=== PATIENT | male | born 1965 | race Caucasian/White ===

== ENCOUNTER 2020-06-27 16:18 | Emergency (ER) | payer MEDICAID, SELFPAY ==
[2020-06-27 16:30] VITALS: BP 165/90; PULSE 97; RESP 16; TEMP 37.4; O2SAT 99
--- NOTE | 2020-06-27 16:58 | ED.URI ---
HPI - URI/Sore Throat General Chief Complaint: Upper Respiratory Infection Stated Complaint: Headache,Fever,Sore throat Time Seen by Provider: 06/27/20 16:58 Source: patient Mode of arrival: ambulatory Limitations: no limitations History of Present Illness HPI Narrative: Otilio Vazquez is a 55 yo male with headache and feverish for the past 6 days; exposed to a nephew 3 days prior to that monitor test positive the other tested negative. He refused to allow the nurse to do a rapid Covid because he refuses to have a nose swab Related Data Allergies Allergy/AdvReac Type Severity Reaction Status Date / Time No Known Allergies Allergy Unverified 08/04/17 11:46 Review of Systems Review of Systems: Narrative: CONSTITUTIONAL: Feels feverish chills, sweats. Has headache EYES: Denies visual changes, redness, discharge. ENT: Denies rhinorrhea, some congestion, sore throat, otalgia. CARDIOVASCULAR: Denies chest pain, palpitations, edema. RESPIRATORY: Denies dyspnea, wheezing, cough GASTROINTESTINAL: Denies abdominal pain, nausea, vomiting, diarrhea. GENITOURINARY: Denies dysuria, hematuria, abnormal discharge SKIN: Denies rash or itching. NEUROLOGIC: Denies numbness, or focal weakness. PSYCHIATRIC: Denies anxiety or depression. ON LICENSE OF [facility] Past Medical History Medical History (Updated 06/27/20 @ 17:49 by Mey Valdes CNP) Chronic back pain Surgical History Surgical History (Updated 06/27/20 @ 17:04 by Mey Valdes CNP) H/O bilateral inguinal hernia repair H/O spinal fusion Family History Family History Sibling Carcinoma of colon Family history of heart disease in male family member before age 55 Mother Family history of Hodgkin's lymphoma, Onset Age: 52 Patient's mother is , Onset Age: 52 Father Family history of heart disease in male family member before age 55, Onset Age: 82 Other Diabetes mellitus Family history of allergic disorder Hypertension Social History Social History Smoking status: Heavy tobacco smoker Alcohol intake: current Comments At time of signature, I agree with nursing past medical, surgical, social and family history. There is no relevant family history pertinent to the presenting complaint. Patient's blood pressure is elevated today visit should follow-up with PCP this week although pt claims BP always elevated due to his chronic back pain Exam Narrative: Exam Narrative: GENERAL: This is a well-nourished, well-developed patient, in mild distress. HEAD: normocephalic, atraumatic. EYES: PERRL. Sclera clear/white. Vision is grossly intact. EARS: External ears normal, auditory canals clear and without drainage, TMs normal without perforation. Hearing grossly intact. NOSE: External nose normal without nasal discharge, nares without redness, no rhinorrhea. THROAT: Mucous membranes moist, posterior pharynx mild erythema mucous membranes are dry, poor dentition NECK: Neck supple, non-tender CARDIOVASCULAR: Regular rate and rhythm without murmurs, gallops, or rubs. RESPIRATORY: Clear to auscultation. Breath sounds equal bilaterally. No wheezes, rales, or rhonchi. GASTROINTESTINAL: Abdomen soft, non-tender, his pain is SKIN: warm, intact with no suspicious lesions or rash, good texture and turgor. NEURO: awake, alert, and oriented to person, place and time. There were no obvious focal neurologic abnormalities. Steady gait EXTREMITIES: Normal range of motion. BACK: Nontender without deformity Course Course Emergency Course: 55-year-old male who comes to [facility] with complaints of headache feeling feverish congestion that started last Saturday 3 days post exposure to to his nephews one of them tested positive for Covid the other who is ill with just a virus patient was difficult to get initial code Covid consent on he had both a rapid Covid and a PCR to
[2020-06-28 20:46] LABS: SARS-CoV-2 RNA PCR Negative
== END 2020-06-27 17:38 | disposition home or self-care (01) ==
PROVIDERS: Emergency Provider Nurse Practitioner
DX: J06.9 Acute upper respiratory infection, unspecified (principal); Z20.822 Contact with and (suspected) exposure to COVID-19; F17.200 Nicotine dependence, unspecified, uncomplicated
CPT/HCPCS: 87426; 99213; C9803; G0463; U0003; U0005

== ENCOUNTER 2020-07-20 10:50 | Outpatient (CLI) | payer OTHER, SELFPAY ==
--- NOTE | ~2020-07-20 | XR_ITS ---
EXAMINATION: XR chest 2V DATE: 07/20/2020 11:05 INDICATION: Shortness of breath. TECHNIQUE: Frontal and lateral views of the chest were obtained. COMPARISON: Chest 2 views 08/04/2013, chest CT 09/01/2018 FINDINGS: There are chronic reticular opacities in the lungs, consistent with emphysema. No pleural e ffusion or pneumothorax. The heart size is normal. Surgical clips in the right upper quadrant are lik elena from cholecystectomy. IMPRESSION: 1. Emphysema. Reviewed, dictated and finalized at location A. IMPRESSION: 1. Emphysema.
[2020-07-20 11:34] LABS: Basophils Absolute Auto 0.1 K/mm3 (0.0-0.1); Basophils Percent Auto 1.2 % (0.2-1.2); Eosinophils Absolute Auto 0.3 K/mm3 (0-0.3); Eosinophils Percent Auto 2.6 % (0-4.4); Hematocrit 51.3 % (42.0-52.0); Hemoglobin 18.4 g/dL (14.0-18.0); Immature Granulocyte Absolute 0.03 K/mm3 (0.00-0.031); Immature Granulocyte Percent A 0.3 % (0-0.5); Lymphocytes Absolute Auto 2.48 K/mm3 (0.9-3.2); Lymphocytes Percent Auto 20.8 % (18.3-44.2); Mean Corpuscular HGB Conc 35.9 g/dl (32-36); Mean Corpuscular Hemoglobin 32.4 pg (26-34); Mean Corpuscular Volume 90.3 fl (80-100); Monocytes Absolute Auto 0.8 K/mm3 (0.1-0.6); Monocytes Percent Auto 6.3 % (2.6-8.5); Neutrophils Absolute Auto 8.2 K/mm3 (1.3-6.7); Neutrophils Percent Auto 68.8 % (45.5-73.1); Platelet Count Result 267 k/mm3 (150-375); Red Blood Count 5.68 M/mm3 (4.6-6.20); Red Cell Distribution Width 12.7 % (11.5-14.5); White Blood Count 11.9 K/mm3 (4.5-10.0)
[2020-07-20 11:35] LABS: Add Urine Microscopic? NO; Appearance Urine Clear (Clear); Bilirubin Urine Negative (Negative); Blood Urine Negative (Negative); Color Urine Straw (Yellow); Glucose Urine UA Negative (Negative); Ketones Urine Negative (Negative); Leukocyte Esterase Ur Negative LEU/UL (NEGATIVE); Nitrate Urine Negative (Negative); Protein Urine Negative (Negative); Urobilinogen Urine Negative mg/dL (<2.0)
[2020-07-20 11:43] LABS: Specific Grav Ur 1.004 (1.001-1.035)
[2020-07-20 12:29] LABS: Vitamin D 25 Hydroxy 32.2 ng/mL
[2020-07-20 13:26] LABS: Hemoglobin A1C 5.3 % (<5.7)
[2020-07-20 13:53] LABS: Alanine Aminotransferase 56 U/L (4-50); Albumin Level 4.4 g/dL (3.5-5.1); Alkaline Phosphatase 90 U/L (38-126); Anion Gap 5 mmol/L (8-16); Aspartate Amino Transferase 41 U/L (17-59); Bilirubin,Total 0.5 mg/dL (0.2-1.3); Blood Urea Nitrogen 9 mg/dL (9-20); Calcium 9.4 mg/dL (8.4-10.2); Carbon Dioxide 32 mmol/L (22-30); Chloride 104 mmol/L (98-107); Cholesterol 175 mg/dL (0-200); Estimated Glomerular Filt Rate > 60; Glucose 96 mg/dL (75-110); HDL Direct 33 mg/dL; Sodium 141 mmol/L (137-145); Triglycerides 225 mg/dL (<150)
[2020-07-20 14:21] LABS: LDL Cholesterol Direct 102 mg/dL
[2020-07-20 14:51] LABS: Prostate Specific Antigen 0.7 ng/mL (< OR = 4.0)
== END 2020-07-20 10:51 | disposition home or self-care (01) ==
LOC: ANHIMG 10:52
PROVIDERS: PCP Nurse Practitioner Family; Visit Provider Nurse Practitioner Family
DX: R06.02 Shortness of breath (principal); Z72.0 Tobacco use; Z00.00 Encounter for general adult medical examination without abnormal findings; E55.9 Vitamin D deficiency, unspecified; Z12.5 Encounter for screening for malignant neoplasm of prostate; J43.9 Emphysema, unspecified
CPT/HCPCS: 36415; 71046; 80053; 80061; 81003; 82306; 82607; 82746; 83036; 84153; 84443; 85025; G0103

== ENCOUNTER 2020-08-29 00:59 | Day surgery (SDC) | payer OTHER, SELFPAY ==
[2020-08-23 12:20] VITALS: BMI 30.7
[2020-08-29 07:44] VITALS: BP 136/80; PULSE 64; RESP 18; TEMP 36.5; O2SAT 95
[2020-08-29] MEDS: LACTATED RINGERS 1,000 ML 150 ML IV CONT (07:53)
--- NOTE | 2020-08-29 08:19 | WPDANESEPPF ---
Anes - Initial Pre Proc Eval Procedure: Operation Date: 08/29/20 08:30 Proposed Procedures p Esophagogastroduodenoscopy & Screening Colonoscopy - Rishi Ceron MD Date/Time: 08/29/20 08:19 Surgeon: Rishi Ceron MD Pre Op Diagnosis: family hx of colon ca, barkley's esophagus Patient Data Age: 55 Gender: M Height: 1.8 m Weight: 98.3 kg Last Vital Signs Temp 97.7 F 08/29/20 07:44 Pulse 64 08/29/20 07:44 Resp 18 08/29/20 07:44 BP 136/80 08/29/20 07:44 Pulse Ox 95 08/29/20 07:44 Allergies Allergy/AdvReac Type Severity Reaction Status Date / Time No Known Allergies Allergy Unverified 08/29/20 07:42 Home Medications Medication Instructions Recorded Confirmed Type metoprolol succinate 25 mg 25 mg PO DAILY #30 tablet 07/20/20 08/29/20 Rx tablet,extended release 24 hr omeprazole 20 mg capsule,delayed 20 mg PO DAILY #30 cap 07/20/20 08/29/20 Rx release naproxen sodium [Aleve] 220 mg PO BID PRN 08/23/20 08/29/20 History Patient hx anesthesia problems: none Family hx anesthesia problems: none PMFSH Past Medical History Medical History (Updated 07/20/20 @ 09:52 by Aniyah Reed NP) Anxiety Barretts esophagus Chronic back pain Chronic knee pain Depression Encounter to establish care Family history of colon cancer Fatty liver Hypertension Shortness of breath Tobacco abuse Surgical History Surgical History (Updated 07/20/20 @ 08:12 by Jonas Unger CMA) H/O bilateral inguinal hernia repair H/O spinal fusion Hx of cholecystectomy Family History Family History (Updated 07/20/20 @ 08:13 by Jonas Unger CMA) Sibling Carcinoma of colon Family history of heart disease in male family member before age 55 Diabetes mellitus Hypertension Depression Mother Family history of Hodgkin's lymphoma, Onset Age: 52 Patient's mother is , Onset Age: 52 Hypertension Diabetes mellitus Father Family history of heart disease in male family member before age 55, Onset Age: 82 Heart disease Other Family history of allergic disorder Social History Social History (Updated 07/20/20 @ 08:13 by Jonas Unger CMA) Smoking packs per day: 1 Smoking cigarettes per day: 20.0 Smoking status: Current every day smoker Tobacco type: cigarettes Alcohol intake: former Substance use: never Living arrangements: with family Spiritual care concerns: No Anes - Eval Final PreProcedure Day of Procedure 08/29/20 08:19 Patient weight: obese Heart: regular rate and rhythm Lungs: clear to auscultation Airway: Mallampati scale class II Neurological: alert and oriented Last oral intake: >/= 8 hours ASA classification: III Emergent: no Anesthetic plan: proceed Anesthesia type and monitoring: general GIVS and standard monitoring Informed Consent: The patient's anesthetic plan and its attendant risks and benefits were discussed with the patient/family/POA. Questions were solicited and answers provided to the satisfaction of the patient/family/POA.
--- NOTE | 2020-08-29 08:34 | PM.HPGS ---
History of Present Illness History of Present Illness Consent: Risks, benefits, and alternatives have been discussed and questions answered. Patient agrees to proceed with procedure. Chief complaint: family hx of colon ca, barkley's esophagus Narrative: Otilio Vazquez is a 55 year old male who had been found to have Barkley's esophagus a few years ago. He also has a history of colon polyps Review of Systems Review of Systems: All systems reviewed & are unremarkable except as noted in HPI and below PMFSH Past Medical History Medical History Anxiety Barretts esophagus Chronic back pain Chronic knee pain Depression Encounter to establish care Family history of colon cancer Fatty liver Hypertension Shortness of breath Tobacco abuse Surgical History Surgical History H/O bilateral inguinal hernia repair H/O spinal fusion Hx of cholecystectomy Family History Family History Sibling Carcinoma of colon Family history of heart disease in male family member before age 55 Diabetes mellitus Hypertension Depression Mother Family history of Hodgkin's lymphoma, Onset Age: 52 Patient's mother is , Onset Age: 52 Hypertension Diabetes mellitus Father Family history of heart disease in male family member before age 55, Onset Age: 82 Heart disease Other Family history of allergic disorder Social History Social History Smoking packs per day: 1 Smoking cigarettes per day: 20.0 Smoking status: Current every day smoker Tobacco type: cigarettes Alcohol intake: former Substance use: never Living arrangements: with family Spiritual care concerns: No Meds Home Medications and Allergies Home Medications Medication Instructions Recorded Confirmed Type metoprolol succinate 25 mg 25 mg PO DAILY #30 tablet 07/20/20 08/29/20 Rx tablet,extended release 24 hr omeprazole 20 mg capsule,delayed 20 mg PO DAILY #30 cap 07/20/20 08/29/20 Rx release naproxen sodium [Aleve] 220 mg PO BID PRN 08/23/20 08/29/20 History Allergies Allergy/AdvReac Type Severity Reaction Status Date / Time No Known Allergies Allergy Unverified 08/29/20 07:42 Vital Signs Vital Signs - 24 hr 08/29/20 07:44 Temperature 36.5 C Pulse Rate 64 Respiratory Rate 18 Blood Pressure 136/80 Pulse Oximetry 95 Exam Const: General: alert Orientation/consciousness: patient oriented x3 Resp: Auscultation: clear to auscultation bilaterally Cardio: Rhythm: regular rhythm GI: GI Palp: Yes Soft to palpation and No Tenderness to palpation present (GI) Neuro: General: patient oriented x3 Assessment and Plan Assessment and plan (1) Barretts esophagus: Code(s): K22.70 - Barkley's esophagus without dysplasia Status: Acute Assessment and Plan: EGD with possible biopsy or dilatation or cautery. (2) Colon cancer screening: Code(s): Z12.11 - Encounter for screening for malignant neoplasm of colon Status: Acute Assessment and Plan: Colonoscopy with possible biopsy or polypectomy or cautery or injection of substances.
[2020-08-29] MEDS: BENZOCAINE (*SP) 60 ML SPRAY CAN (HURRICAINE) 1 SPRAY MUCOUS MEM (08:48)
[2020-08-29 09:18] VITALS: BP 102/54; PULSE 54; RESP 15; O2SAT 94
[2020-08-29 09:28] VITALS: BP 118/84; PULSE 62; RESP 23; O2SAT 92
[2020-08-29 09:38] VITALS: BP 110/77; PULSE 59; RESP 20; O2SAT 95
== END 2020-08-29 09:45 | disposition home or self-care (01) ==
PROVIDERS: PCP Nurse Practitioner Family; Visit Provider Internal Medicine Gastroenterology
PROC: 0DJ08ZZ Inspection of Upper Intestinal Tract, Via Natural or Artificial Opening Endoscopic (ICD-10-PCS; CPT 43235; principal; 2020-08-29 08:30)
DX: Z12.11 Encounter for screening for malignant neoplasm of colon (principal); K63.5 Polyp of colon; K64.8 Other hemorrhoids; K64.4 Residual hemorrhoidal skin tags; K22.70 Barrett's esophagus without dysplasia; K21.00 Gastro-esophageal reflux disease with esophagitis, without bleeding; F41.8 Other specified anxiety disorders; K76.0 Fatty (change of) liver, not elsewhere classified; I10 Essential (primary) hypertension; F17.210 Nicotine dependence, cigarettes, uncomplicated; E66.9 Obesity, unspecified; Z68.30 Body mass index [BMI] 30.0-30.9, adult
CPT/HCPCS: 45385; 45380; 43239; 88305; J2704; J7120

== ENCOUNTER 2020-11-11 13:11 | Emergency (ER) | payer OTHER, SELFPAY ==
--- NOTE | 2020-11-11 13:14 | ED.ABDPAIN ---
HPI - Abdominal Pain General Chief Complaint: Abdominal Pain Stated Complaint: Abdominal Pain Time Seen by Provider: 11/11/20 13:30 Source: patient and RN notes reviewed Mode of arrival: ambulatory Limitations: no limitations History of Present Illness HPI narrative: 55-year-old male with history of Lew's esophagus, chronic pain, emphysema, fatty liver, hypertension, tobacco use presents with concern for abdominal pain. Reports history of chronic right upper quadrant abdominal pain for which he has had several work-up diagnostic tests. Reports yesterday when he was tying his shoes he bent over felt a sudden left upper quadrant abdominal pain that has worsened since then he has become distended. Reports left upper quadrant tenderness, worsening with movement. He denies fever, vomiting, diarrhea. Reports anorexia MD elicited complaint: abdominal pain Related Data Home Medications Medication Instructions Recorded Confirmed naproxen sodium [Aleve] 220 mg PO BID PRN 08/23/20 10/20/20 Allergies Allergy/AdvReac Type Severity Reaction Status Date / Time No Known Allergies Allergy Unverified 08/29/20 07:42 Review of Systems Review of Systems: CONSTITUTIONAL: Denies malaise, chills, sweats, or fever. CARDIOVASCULAR: Denies chest pain, palpitations, or edema. RESPIRATORY: Denies cough or dyspnea. GASTROINTESTINAL: Reports right upper quadrant chronic abdominal pain, new left upper quadrant pain nausea, anorexia. Denies vomiting, diarrhea, bloody, or mucous stools. MUSCULOSKELETAL: Denies myalgia. All systems reviewed & are unremarkable except as noted in HPI and below PMFSH Past Medical History Medical History (Updated 11/11/20 @ 13:45 by Nona Molina NP) Anxiety Barretts esophagus 3 cm area of Lew's on EGD on 08/29/[address] Ceron. Recheck in 3 years Chronic back pain Chronic knee pain Depression Emphysema lung Encounter to establish care Family history of colon cancer Fatty liver Hypertension Pharyngitis, acute Polyp of colon (08/29/20) 2 polyps on colonoscopy with Dr. Ceron on 08/29/2020 with recheck in 5 years Shortness of breath Tobacco abuse Upper respiratory infection Surgical History Surgical History H/O bilateral inguinal hernia repair H/O spinal fusion Hx of cholecystectomy Family History Family History Sibling Carcinoma of colon Family history of heart disease in male family member before age 55 Diabetes mellitus Hypertension Depression Mother Family history of Hodgkin's lymphoma, Onset Age: 52 Patient's mother is , Onset Age: 52 Hypertension Diabetes mellitus Father Family history of heart disease in male family member before age 55, Onset Age: 82 Heart disease Other Family history of allergic disorder Social History Social History Smoking packs per day: 1 Smoking cigarettes per day: 20.0 Smoking status: Current every day smoker Tobacco type: cigarettes Alcohol intake: former Substance use: never Spiritual care concerns: No Comments At time of signature, agree with nursing past medical, surgical, social and family history. There is no relevant family history pertinent to the presenting complaint Exam Narrative: GENERAL: Well-appearing, well-nourished, and in no acute distress. HEAD: Normocephalic, atraumatic. EYES: PERRLA, conjunctivae clear ENT: Mucous membranes moist. NECK: Supple. CHEST: Speaks in full sentences. No respiratory distress. HEART: Regular rate and rhythm. ABDOMEN: Firm, distended, left upper quadrant tenderness. No guarding, rebound tenderness, or rigid. Bowel sounds present in all four quadrants. SKIN: Warm, dry, no rash. NEURO: Alert and oriented x3. PSYCH: Normal mood and affect Course Course Emergency Course: Patient is sara
[2020-11-11 13:19] VITALS: BP 137/91; PULSE 88; RESP 18; TEMP 37.3; O2SAT 98
== END 2020-11-11 13:45 | disposition home or self-care (01) ==
PROVIDERS: Emergency Provider Nurse Practitioner; PCP Nurse Practitioner Family
DX: R10.12 Left upper quadrant pain (principal); F17.210 Nicotine dependence, cigarettes, uncomplicated; K22.70 Barrett's esophagus without dysplasia; K76.0 Fatty (change of) liver, not elsewhere classified; I10 Essential (primary) hypertension; J43.9 Emphysema, unspecified
CPT/HCPCS: 99212; G0463

== ENCOUNTER 2020-11-12 08:51 | Emergency (ER) | payer OTHER, SELFPAY ==
--- NOTE | ~2020-11-12 | CT_ITS ---
EXAMINATION: CT abdomen pelvis w con EXAM DATE: 11/12/2020 10:50 INDICATION: Right upper quadrant pain. TECHNIQUE: Spiral CT of the abdomen and pelvis was performed following intravenous injection of 100 m L Omnipaque 350. Axial, coronal and sagittal images of the abdomen and pelvis were reviewed. The do se-length product (DLP) for this examination was 940.81 mGy-cm. The exposure was tailored according to patient size (auto mA exposure control), and iterative reconstruction (ASIR) was used as additiona l dose reduction technique. Comparison is made to prior examination from 10/28/2014. FINDINGS: There is hepatic steatosis without suspicious focal lesion identified. Spleen, adrenal glan ds, pancreas are unremarkable. There are cholecystectomy clips. Portal and splenic veins are patent . Kidneys enhance symmetrically. There is no hydronephrosis. The prostate is unremarkable. The b ladder is unremarkable. There is no retroperitoneal or pelvic lymphadenopathy. There is mild scatt ered arteriosclerotic disease. The appendix is normal. The stomach and small bowel are unremarkable. There is expected amount of c olonic stool. No free intraperitoneal gas. The heart is normal in size. There are no pericardial or pleural effusions. The lung bases are unremarkable. L5-S1 fusion. IMPRESSION: 1. No acute intra-abdominal findings. 2. Hepatic steatosis. 3. Interval cholecystectomy. Reviewed, dictated and finalized at location A.
[2020-11-12 08:58] VITALS: BP 142/78; PULSE 84; RESP 20; TEMP 36.7; O2SAT 99
[2020-11-12 09:23] LABS: Basophils Absolute Auto 0.2 K/mm3 (0.0-0.1); Basophils Percent Auto 1.5 % (0.2-1.2); Eosinophils Absolute Auto 0.3 K/mm3 (0-0.3); Eosinophils Percent Auto 3.2 % (0-4.4); Hematocrit 49.3 % (42.0-52.0); Hemoglobin 17.3 g/dL (14.0-18.0); Immature Granulocyte Absolute 0.03 K/mm3 (0.00-0.031); Immature Granulocyte Percent A 0.3 % (0-0.5); Lymphocytes Absolute Auto 1.74 K/mm3 (0.9-3.2); Lymphocytes Percent Auto 17.1 % (18.3-44.2); Mean Corpuscular HGB Conc 35.1 g/dl (32-36); Mean Corpuscular Hemoglobin 32.1 pg (26-34); Mean Corpuscular Volume 91.5 fl (80-100); Mean Platelet Volume 9.7 fl (7.4-10.4); Monocytes Absolute Auto 0.8 K/mm3 (0.1-0.6); Monocytes Percent Auto 7.9 % (2.6-8.5); Neutrophils Absolute Auto 7.1 K/mm3 (1.3-6.7); Platelet Count Result 258 k/mm3 (150-375); Red Blood Count 5.39 M/mm3 (4.6-6.20); Red Cell Distribution Width 12.6 % (11.5-14.5); White Blood Count 10.2 K/mm3 (4.5-10.0)
[2020-11-12 09:45] LABS: Alanine Aminotransferase 49 U/L (4-50); Albumin Level 4.1 g/dL (3.5-5.1); Alkaline Phosphatase 89 U/L (38-126); Anion Gap 14 mmol/L (8-16); Aspartate Amino Transferase 39 U/L (17-59); Bilirubin,Total 0.9 mg/dL (0.2-1.3); Blood Urea Nitrogen 10 mg/dL (9-20); Calcium 8.7 mg/dL (8.4-10.2); Carbon Dioxide 23 mmol/L (22-30); Chloride 103 mmol/L (98-107); Estimated CRCL calculation 82 ml/min; Estimated Glomerular Filt Rate > 60; Glucose 143 mg/dL (65-110); Lipase 50 U/L (23-300); Potassium 3.5 mmol/L (3.4-5.0); Sodium 140 mmol/L (137-145)
--- NOTE | 2020-11-12 09:58 | ED.ABDPAIN ---
HPI - Abdominal Pain General Chief Complaint: Abdominal Pain Stated Complaint: abd pain from express care yest Time Seen by Provider: 11/12/20 09:57 Source: patient Related Data Home Medications Medication Instructions Recorded Confirmed naproxen sodium [Aleve] 220 mg PO BID PRN 08/23/20 11/11/20 Allergies Allergy/AdvReac Type Severity Reaction Status Date / Time No Known Allergies Allergy Verified 11/11/20 13:47 [facility] Past Medical History Medical History (Updated 11/12/20 @ 00:01 by Dannie Bryant) Anxiety Barretts esophagus 3 cm area of Lew's on EGD on 08/29/[address] Ceron. Recheck in 3 years Chronic back pain Chronic knee pain Depression Emphysema lung Encounter to establish care Family history of colon cancer Fatty liver Hypertension Pharyngitis, acute Polyp of colon (08/29/20) 2 polyps on colonoscopy with Dr. Ceron on 08/29/2020 with recheck in 5 years Shortness of breath Tobacco abuse Upper respiratory infection Surgical History Surgical History H/O bilateral inguinal hernia repair H/O spinal fusion Hx of cholecystectomy Family History Family History Sibling Carcinoma of colon Family history of heart disease in male family member before age 55 Diabetes mellitus Hypertension Depression Mother Family history of Hodgkin's lymphoma, Onset Age: 52 Patient's mother is , Onset Age: 52 Hypertension Diabetes mellitus Father Family history of heart disease in male family member before age 55, Onset Age: 82 Heart disease Other Family history of allergic disorder Social History Social History Smoking packs per day: 1 Smoking cigarettes per day: 20.0 Smoking status: Current every day smoker Tobacco type: cigarettes Alcohol intake: former Substance use: never Spiritual care concerns: No Course Vital Signs Vital signs: Vital Signs Temperature 36.7 C 11/12/20 08:58 Pulse Rate 84 11/12/20 08:58 Respiratory Rate 20 11/12/20 08:58 Blood Pressure 142/78 H 11/12/20 08:58 Pulse Oximetry 99 11/12/20 08:58 Temperature 36.7 C 11/12/20 08:58 Pulse Rate 84 11/12/20 08:58 Respiratory Rate 20 11/12/20 08:58 Blood Pressure 142/78 H 11/12/20 08:58 Pulse Oximetry 99 11/12/20 08:58 MDM - Abdominal Pain Lab Data Result diagrams: 11/12/20 09:12 11/12/20 09:12 Labs: Lab Results 11/12/20 11/12/20 11/12/20 Range/Units 09:12 09:12 09:49 WBC 10.2 H (4.5-10.0) K/mm3 RBC 5.39 (4.6-6.20) M/mm3 Hgb 17.3 (14.0-18.0) g/dL Hct 49.3 (42.0-52.0) % MCV 91.5 (80-100) fl MCH 32.1 (26-34) pg MCHC 35.1 (32-36) g/dl RDW 12.6 (11.5-14.5) % Plt Count 258 (150-375) k/mm3 MPV 9.7 (7.4-10.4) fl Immature Gran % (Auto) 0.3 (0-0.5) % Neut % (Auto) 70.0 (45.5-73.1) % Lymph % (Auto) 17.1 L (18.3-44.2) % [place]ler % (Auto) 7.9 (2.6-8.5) % Eos % (Auto) 3.2 (0-4.4) % Baso % (Auto) 1.5 H (0.2-1.2) % Lymph # (Auto) 1.74 (0.9-3.2) K/mm3 [place]ler # (Auto) 0.8 H (0.1-0.6) K/mm3 Eos # (Auto) 0.3 (0-0.3) K/mm3 Baso # (Auto) 0.2 H (0.0-0.1) K/mm3 Abs Immat Gran (auto) 0.03 (0.00-0.031) K/mm3 Absolute Neuts (auto) 7.1 H (1.3-6.7) K/mm3 Absolute Nucleated RBC 0.0 (0.0-0.012) K/mm3 Nucleated RBC % 0.0 (0.0-0.2) % Sodium 140 (137-145) mmol/L Potassium 3.5 (3.4-5.0) mmol/L Chloride 103 (98-107) mmol/L Carbon Dioxide 23 (22-30) mmol/L Anion Gap 14 (8-16) mmol/L BUN 10 (9-20) mg/dL Creatinine 1.00 (0.7-1.3) mg/dL Estim Creat Clear Calc 82 ml/min Estimated GFR > 60 (59 - ) Glucose 143 H (65-110) mg/dL Calcium 8.7 (8.4-10.2) mg/dL Total Bilirubin 0.9 (0.2-1.3) mg/dL AST 39 (17-59)
[2020-11-12 10:01] LABS: Add Urine Microscopic? NO; Appearance Urine Clear (Clear); Bilirubin Urine Negative (Negative); Blood Urine Negative (Negative); Color Urine Yellow (Yellow); Glucose Urine UA Negative (Negative); Ketones Urine Negative (Negative); Leukocyte Esterase Ur Negative LEU/UL (Negative); Nitrate Urine Negative (Negative); Protein Urine Negative (Negative); Specific Grav Ur 1.012 (1.001-1.035); Urobilinogen Urine Negative mg/dL (<2.0)
[2020-11-12] MEDS: SODIUM CHLORIDE 0.9% IV 1,000 ML 999 ML IV CONT (10:12)
--- NOTE | 2020-11-12 10:57 | ED.ABDPAIN ---
HPI - Abdominal Pain General Chief Complaint: Abdominal Pain Stated Complaint: abd pain from express care yest Time Seen by Provider: 11/12/20 09:57 Source: patient Mode of arrival: ambulatory Limitations: no limitations History of Present Illness HPI narrative: Patient is 55 years old white male presented to the ED with gradual progressive increase in the size of the abdomen over the last 12 months. With pain. Got worse over the last few days. Patient denies any fever, chills, nausea, vomiting, diarrhea, constipation, urinary symptoms. MD elicited complaint: abdominal pain Related Data Home Medications Medication Instructions Recorded Confirmed naproxen sodium [Aleve] 220 mg PO BID PRN 08/23/20 11/11/20 Allergies Allergy/AdvReac Type Severity Reaction Status Date / Time No Known Allergies Allergy Verified 11/11/20 13:47 Review of Systems Review of Systems: CONSTITUTIONAL: Denies fever, chills, or sweats. EYES: Denies visual changes, redness, or discharge. ENT: Denies rhinorrhea, congestion, sore throat, or otalgia. CARDIOVASCULAR: Denies chest pain, palpitations, or edema. RESPIRATORY: Denies cough or dyspnea. GASTROINTESTINAL: Denies abdominal pain, nausea, vomiting, or diarrhea. GENITOURINARY: Denies dysuria or hematuria. SKIN: Denies rash or itching. MUSCULOSKELETAL: Denies back pain, joint pain, or myalgia. NEUROLOGIC: Denies headache, numbness, or weakness. PSYCHIATRIC: Denies anxiety or depression. [facility] Past Medical History Medical History Anxiety Barretts esophagus 3 cm area of Lew's on EGD on 08/29/[address] Ceron. Recheck in 3 years Chronic back pain Chronic knee pain Depression Emphysema lung Encounter to establish care Family history of colon cancer Fatty liver Hypertension Pharyngitis, acute Polyp of colon (08/29/20) 2 polyps on colonoscopy with Dr. Ceron on 08/29/2020 with recheck in 5 years Shortness of breath Tobacco abuse Upper respiratory infection Surgical History Surgical History H/O bilateral inguinal hernia repair H/O spinal fusion Hx of cholecystectomy Family History Family History Sibling Carcinoma of colon Family history of heart disease in male family member before age 55 Diabetes mellitus Hypertension Depression Mother Family history of Hodgkin's lymphoma, Onset Age: 52 Patient's mother is , Onset Age: 52 Hypertension Diabetes mellitus Father Family history of heart disease in male family member before age 55, Onset Age: 82 Heart disease Other Family history of allergic disorder Social History Social History Smoking packs per day: 1 Smoking cigarettes per day: 20.0 Smoking status: Current every day smoker Tobacco type: cigarettes Alcohol intake: former Substance use: never Spiritual care concerns: No Exam Narrative: General appearance: Well-developed, well-nourished Skin: Normal color Head: Normocephalic, nontraumatic Eyes: Clear conjunctiva ENT: Oropharynx normal, ears normal, nose normal Neck: Supple, nontender Chest and respiratory: Airway patent, no respiratory distress, no accessory muscle use Heart: Regular rate/rhythm Abdomen: Soft, distended, diffusely tender Vascular: Normal peripheral pulses, normal capillary refill. Musculoskeletal: Nail clubbing bilateral Neurologic: Alert and oriented ?3, SCHEDULING AGENT is normal as tested, no gross motor deficit Course Course Emergency Course: Stable Vital Signs Vital s
== END 2020-11-12 12:56 | disposition home or self-care (01) ==
PROVIDERS: Emergency Provider Emergency Medicine; PCP Nurse Practitioner Family
DX: R10.84 Generalized abdominal pain (principal); G89.29 Other chronic pain; K76.0 Fatty (change of) liver, not elsewhere classified; F17.210 Nicotine dependence, cigarettes, uncomplicated; K22.70 Barrett's esophagus without dysplasia; J43.9 Emphysema, unspecified; I10 Essential (primary) hypertension; Z86.010 Personal history of colon polyps; Z98.1 Arthrodesis status
CPT/HCPCS: 36415; 74177; 80053; 81003; 83690; 85025; 96360; 96361; 99284; J7030; Q9967

== ENCOUNTER 2020-11-29 11:15 | Outpatient (CLI) | payer OTHER, SELFPAY ==
--- NOTE | ~2020-11-29 | XR_ITS ---
EXAMINATION: [id number]_CR INDICATION: Pleurodynia TECHNIQUE: Three views of the bilateral ribs are obtained. COMPARISON: None available FINDINGS: The lungs are free of acute opacities. There is no pleural effusion or pneumothorax. The ca rdiomediastinal silhouette is normal. No displaced rib fracture is identified. Surgical clips in the right upper quadrant are likely from prior cholecystectomy. There are lumbosacral surgical changes. IMPRESSION: 1. No acute cardiopulmonary abnormality or evidence of displaced rib fracture. Reviewed, dictated and finalized at location A.
== END 2020-11-29 11:16 | disposition home or self-care (01) ==
LOC: ANHIMG 11:22
PROVIDERS: PCP Nurse Practitioner Family; Visit Provider Nurse Practitioner Family
DX: R07.81 Pleurodynia (principal)
CPT/HCPCS: 71110

== ENCOUNTER 2020-12-23 13:03 | Emergency (ER) | payer OTHER, SELFPAY ==
[2020-12-23 13:18] VITALS: BP 148/86; PULSE 76; RESP 20; TEMP 36.7; O2SAT 98
--- NOTE | 2020-12-23 13:27 | ED.URI ---
HPI - URI/Sore Throat General Chief Complaint: Nausea/Vomiting/Diarrhea Stated Complaint: Headache,Fever,Diarrhea Time Seen by Provider: 12/23/20 13:18 Source: patient, RN notes reviewed and old records reviewed Mode of arrival: ambulatory Limitations: no limitations History of Present Illness HPI Narrative: 55-year-old male presents to the [facility] saying I am really sick. States he has been very sick for 2 weeks. States 2 weekends ago He spent time with family and 2 of the little kids were sick. Patient does hold unknown diagnosis and states he just needs amoxicillin so he feels better. States that he has not been taking his home medication because he has been sick. States that he does not take pills to help with his symptoms. Has not taken anything for his headache. States he felt very feverish and he knows it was a fever, did not take his temperature. Reports diarrhea 2 times a day, last diarrheal episode was yesterday. recently had an abdominal work-up in the ER on November 12, 2020. Follow-up with GI. Patient reports feeling feverish, headaches and diarrhea. No treatment prior to arrival states he does not like to take pills. Related Data Home Medications Medication Instructions Recorded Confirmed naproxen sodium [Aleve] 220 mg PO BID PRN 08/23/20 12/23/20 Allergies Allergy/AdvReac Type Severity Reaction Status Date / Time No Known Allergies Allergy Verified 12/23/20 13:27 Review of Systems Review of Systems: All systems reviewed & are unremarkable except as noted in HPI and below Constitutional: Constitutional: Reports as per HPI and Reports fever(s) (Subjective) Eyes: Eyes: Reports no additional eye complaints ENT: Reports system reviewed and no additional complaints, except as documented Cardiovascular: Cardiovascular: Reports no additional cardiovascular complaints and Denies chest pain Respiratory: Respiratory: Reports no additional respiratory complaints and Denies cough Gastrointestinal: Gastrointestinal: Reports as per HPI, Reports abdominal pain (Reports chronic abdominal pain nothing new), Reports diarrhea, Denies nausea and Denies vomiting Genitourinary: Genitourinary: Reports no additional male genitourinary complaints Musculoskeletal: Musculoskeletal: Reports no additional musculoskeletal complaints Neurologic: Reports as per HPI and Reports headache(s) (Frontal) Psychiatric: Psychiatric: Reports no additional psychiatric complaints Allergic/Immunologic: Allergic/Immunologic: Reports no additional allergic/immunologic complaints [facility] Past Medical History Medical History (Updated 12/23/20 @ 13:31 by Nona Mcmahon) Abdominal spasms Anxiety Barretts esophagus 3 cm area of Lew's on EGD on 08/29/[address] Ceron. Recheck in 3 years Chronic back pain Chronic knee pain Depression Emphysema lung Encounter to establish care Family history of colon cancer Fatty liver Hypertension Pharyngitis, acute Polyp of colon (08/29/20) 2 polyps on colonoscopy with Dr. Ceron on 08/29/2020 with recheck in 5 years Rib pain on left side Rib pain on right side Shortness of breath Tobacco abuse Upper respiratory infection Surgical History Surgical History H/O bilateral inguinal hernia repair H/O spinal fusion Hx of cholecystectomy Family History Family History Sibling Carcinoma of colon Family history of heart disease in male family member before age 55 Diabetes mellitus Hypertension Depression Mother Family history of Hodgkin's lymphoma, Onset Age: 52 Patient's mother is , Onset Age: 52 Hypertension Diabetes mellitus Father Family history of heart disease in male family member before age 55, Onset Age: 82 Heart disease Other Family history of allergic disorder Social History Social History Sm
== END 2020-12-23 13:36 | disposition home or self-care (01) ==
PROVIDERS: Emergency Provider Nurse Practitioner; PCP Nurse Practitioner Family
DX: B34.9 Viral infection, unspecified (principal); H65.01 Acute serous otitis media, right ear; F17.210 Nicotine dependence, cigarettes, uncomplicated; K22.70 Barrett's esophagus without dysplasia; I10 Essential (primary) hypertension; J43.9 Emphysema, unspecified
CPT/HCPCS: 99211; G0463

== ENCOUNTER 2021-02-20 10:36 | Emergency (ER) | payer OTHER, SELFPAY ==
[2021-02-20 10:50] VITALS: BP 147/91; PULSE 70; RESP 18; TEMP 36.9; O2SAT 98
--- NOTE | 2021-02-20 11:00 | ED.EYEPROB ---
HPI - Eye Problem General Chief complaint: Eye Problems Stated complaint: swollen eye lid,bilateral ear pain,neck swelling Time Seen by Provider: 02/20/21 11:00 Source: patient, RN notes reviewed and old records reviewed Mode of arrival: ambulatory Limitations: no limitations History of Present Illness HPI Narrative: 55-year-old male presents to the [facility] with complaints of swollen eyelid, swollen lymph nodes, right ear pain/pressure. Patient reports that the right ear pain and pressure has continued since December but waxes and wanes. Did not follow-up with primary care provider or ENT provider as suggested Was seen in December for similar symptoms, states that he takes Claritin and feels better, states he will not use Flonase because he will not put anything up his nose. Denies chest pain or shortness of breath. Denies fevers. Related Data Allergies Allergy/AdvReac Type Severity Reaction Status Date / Time No Known Allergies Allergy Verified 02/20/21 11:09 Review of Systems Review of Systems: All systems reviewed & are unremarkable except as noted in HPI and below Constitutional: Constitutional: Reports no additional constitutional complaints, Denies chills and Denies fever(s) Eyes: Eyes: Reports as per HPI Comments: Right upper eyelid ENT: Reports as per HPI Comments: Right ear pressure Cardiovascular: Cardiovascular: Reports no additional cardiovascular complaints and Denies chest pain Respiratory: Respiratory: Reports no additional respiratory complaints, Denies chest congestion, Denies cough, Denies dyspnea and Denies wheezing Gastrointestinal: Gastrointestinal: Reports no additional gastrointestinal complaints, Denies abdominal pain, Denies diarrhea, Denies nausea and Denies vomiting Musculoskeletal: Musculoskeletal: Reports no additional musculoskeletal complaints Integumentary/Breasts: Skin/Breast: Reports system reviewed and no additional complaints, except as docu Neurologic: Reports system reviewed and no additional complaints, except as documented Psychiatric: Psychiatric: Reports no additional psychiatric complaints Hematologic/Lymphatic: Hematologic/Lymphatic: Reports as per HPI Comments: Swollen lymph nodes neck Allergic/Immunologic: Allergic/Immunologic: Reports no additional allergic/immunologic complaints [facility] Past Medical History Medical History (Updated 02/20/21 @ 17:51 by Nona Mcmahon) Abdominal spasms Anxiety Barretts esophagus 3 cm area of Lew's on EGD on 08/29/[address] Ceron. Recheck in 3 years Chronic back pain Chronic knee pain Depression Emphysema lung Encounter to establish care Family history of colon cancer Fatty liver Hypertension Pharyngitis, acute Polyp of colon (08/29/20) 2 polyps on colonoscopy with Dr. Ceron on 08/29/2020 with recheck in 5 years Rib pain on left side Rib pain on right side Shortness of breath Tobacco abuse Upper respiratory infection Surgical History Surgical History H/O bilateral inguinal hernia repair H/O spinal fusion Hx of cholecystectomy Family History Family History Sibling Carcinoma of colon Family history of heart disease in male family member before age 55 Diabetes mellitus Hypertension Depression Mother Family history of Hodgkin's lymphoma, Onset Age: 52 Patient's mother is , Onset Age: 52 Hypertension Diabetes mellitus Father Family history of heart disease in male family member before age 55, Onset Age: 82 Heart disease Other Family history of allergic disorder Social History Social History Smoking packs per day: 1 Smoking cigarettes per day: 20.0 Smoking status: Current every day smoker Tobacco type: cigarettes Alcohol intake: former Substance use: never Spiritual care concerns: No Comments At the time of
== END 2021-02-20 11:24 | disposition home or self-care (01) ==
PROVIDERS: Emergency Provider Nurse Practitioner; PCP Family Medicine
DX: H65.01 Acute serous otitis media, right ear (principal); H00.011 Hordeolum externum right upper eyelid; R59.1 Generalized enlarged lymph nodes; F17.210 Nicotine dependence, cigarettes, uncomplicated; K22.70 Barrett's esophagus without dysplasia; J43.9 Emphysema, unspecified; K76.0 Fatty (change of) liver, not elsewhere classified; I10 Essential (primary) hypertension
CPT/HCPCS: 99213; G0463

== ENCOUNTER 2021-03-20 12:16 | Outpatient (CLI) | payer OTHER, SELFPAY ==
--- NOTE | ~2021-03-20 | XR_ITS ---
EXAMINATION: XR lumbar spine min 4V DATE: 03/20/2021 12:34 INDICATION: Low back pain, unspecified. TECHNIQUE: 5 views of lumbar spine were obtained. COMPARISON: CT abdomen and pelvis 09/11/2020 FINDINGS: There are changes of anterior and posterior fusion procedures at L5-S1 with interbody devic es and pedicle screws. Vertebral body heights are normal. There is mildly decreased disc height at L3 -L4. There are endplate osteophytes at most levels. There is multilevel mild facet joint osteoarthrit is. IMPRESSION: 1. Mild lumbar spondylosis. 2. Anterior and posterior fusion procedures at L5-S1. Reviewed, dictated and finalized at location A. ELHEAD INSPECTOR
== END 2021-03-20 12:17 | disposition home or self-care (01) ==
LOC: ANHIMG 12:20
PROVIDERS: PCP Family Medicine; Visit Provider Family Medicine
DX: M47.896 Other spondylosis, lumbar region (principal); Z98.1 Arthrodesis status
CPT/HCPCS: 72110

== ENCOUNTER 2021-03-27 13:15 | Emergency (ER) | payer OTHER, SELFPAY ==
[2021-03-27 13:27] VITALS: BP 142/98; PULSE 84; RESP 18; TEMP 36.7; O2SAT 99
--- NOTE | 2021-03-27 13:47 | ED.URI ---
HPI - URI/Sore Throat General Chief Complaint: Upper Respiratory Infection Stated Complaint: Coughing up Blood History of Present Illness HPI Narrative: This is a 55 year old male that presents the urgent care complaining of coughing up blood bright red 6 x today. Patient insist that it is not blood in the sputum but straight blood and a lot. Patient denies having any ulcer or using nsaid or drinking a lot. Mr. Vazquez states that he has been taking his gerd medication and the symptoms started today. I informed patient if there is blood in his sputum it could be from bronchitis or some forms of pneumonia but he has informed me that it not like sputum with blood in it it is straight blood. I then had to inform him if he is coughing up blood then I would need to send him to the emergency room because he would need to have further evaluation . Related Data Allergies Allergy/AdvReac Type Severity Reaction Status Date / Time No Known Allergies Allergy Verified 02/20/21 11:09 Review of Systems Review of Systems: coughing bright red blood All systems reviewed & are unremarkable except as noted in HPI and below PMF[facility] Past Medical History Medical History (Updated 03/27/21 @ 13:48 by Jennifer Scott, JOHNNA) Abdominal spasms Anxiety Barretts esophagus 3 cm area of Lew's on EGD on 08/29/[address] Ceron. Recheck in 3 years Chronic back pain Chronic knee pain Chronic low back pain X-ray of the lumbar spine on 03/20/2021 reveals previous anterior and posterior fusion at L5-S1 with hardware intact. Mild degenerative disc disease at L3-L4 and mild facet arthritis throughout. Depression Emphysema lung Encounter to establish care Family history of colon cancer Fatty liver Hypertension Lymphadenopathy Otitis media, left Pharyngitis, acute Polyp of colon (08/29/20) 2 polyps on colonoscopy with Dr. Ceron on 08/29/2020 with recheck in 5 years Rib pain on left side Rib pain on right side Right serous otitis media Shortness of breath Tobacco abuse Upper respiratory infection Surgical History Surgical History H/O bilateral inguinal hernia repair H/O spinal fusion Hx of cholecystectomy Family History Family History Sibling Carcinoma of colon Family history of heart disease in male family member before age 55 Diabetes mellitus Hypertension Depression Mother Family history of Hodgkin's lymphoma, Onset Age: 52 Patient's mother is , Onset Age: 52 Hypertension Diabetes mellitus Father Family history of heart disease in male family member before age 55, Onset Age: 82 Heart disease Other Family history of allergic disorder Social History Social History (Updated 03/08/21 @ 13:27 by Deisi Chong MA) Smoking packs per day: 0.5 Smoking cigarettes per day: 10.0 Years smoked: 30 Smoking pack-years: 15.00 Smoking status: Current every day smoker Tobacco type: cigarettes Alcohol intake: former Substance use: never Substance use type: does not use Spiritual care concerns: No Comments At time as signature, I have reviewed and agree with nursing past medical, social, surgical and family history. Please see nursing chart for further information. There is no relevant family history pertinent to the presenting complaint. Exam Narrative: GENERAL:Well-appearing, well-nourished, and in no acute distress. HEAD:Normocephalic, EYES: PERRLA and EOMI. ENT: Nares clear, no rhinorrhea or epistaxis. Mucous membranes moist. CHEST: Clear to auscultation. No respiratory distress. HEART: Regular rate and rhythm. No murmur heard. Normal peripheral pulses. ABDOMEN: Soft, nontender, nondistended, normal active bowel sounds. EXTREMITIES: Normal range of motion. No edema. SKIN: Warm, dry, no rash. NEURO: No focal deficits. Alert and oriented x3. Const: General: no acute distress
--- NOTE | 2021-03-27 13:54 | PC.NURSE ---
Patient stated while signing transfer papers I'm proboly not going I don't want to catch AROLDO Asked patient to sign an against medical advice since he said he wasn't going to go and refused
== END 2021-03-27 13:49 | disposition short-term general hospital (02) ==
PROVIDERS: Emergency Provider Nurse Practitioner Family; PCP Family Medicine
DX: R04.2 Hemoptysis (principal); F17.210 Nicotine dependence, cigarettes, uncomplicated; K22.70 Barrett's esophagus without dysplasia; K76.0 Fatty (change of) liver, not elsewhere classified; I10 Essential (primary) hypertension; J43.9 Emphysema, unspecified
CPT/HCPCS: 99212; G0463

== ENCOUNTER 2021-03-28 11:58 | Emergency (ER) | payer OTHER, SELFPAY ==
--- NOTE | ~2021-03-28 | CT_ITS ---
EXAMINATION: CTA chest PE protocol EXAM DATE: 03/28/2021 13:36 INDICATION: Hemoptysis TECHNIQUE: Spiral CTA of the chest (pulmonary arteries) was performed with 100 cc Omnipaque 350 intr avenous contrast injection. Images were acquired during the pulmonary arterial phase. Coronal maxi mum intensity projection 3D-reconstructions were created by the technologist on dedicated workstation . Axial, coronal and sagittal reformatted images were reviewed. The dose-length product (DLP) for t his examination was 642.42 mGy-cm. The exposure was tailored according to patient size (auto mA exp osure control), and iterative reconstruction (ASIR) was used as additional dose reduction technique. Comparison is made to prior examination from 09/01/2018. FINDINGS: Pulmonary arteries are well opacified and without intraluminal filling defects. No thora cic aortic dissection. Mild dependent groundglass opacity, subsegmental atelectasis. Some small scat tered postinfectious residua. Mild to moderate emphysema. There are no pleural or pericardial effusi ons. Tracheobronchial tree is patent. There is right hilar lymphadenopathy with a lymph node oxana uring 1.7 x 2.7 cm, stable or slightly decreased in size consistent with benign histology, such as gr anulomatous process, sarcoidosis. There is no pneumothorax. Heart normal in size. There is mild coronary arterial calcification, arterial sclerosis. Upper abdomen is unremarkable. There is thora cic spondylosis without osteoblastic or osteolytic lesions identified. IMPRESSION: 1. Stable right hilar lymphadenopathy, could be sarcoidosis or other granulomatous process. 2. Mild to moderate emphysema. 3. No pulmonary emboli. Reviewed, dictated and finalized at location A. SSMENT SERVICES MANAGER IMPRESSION: 1. Stable right hilar lymphadenopathy, could be sarcoidosis or other granuloma tous process. 2. Mild to moderate emphysema. 3. No pulmonary emboli.
--- NOTE | ~2021-03-28 | XR_ITS ---
EXAMINATION: XR chest 2V 03/28/2021 12:32 INDICATION: Left-sided chest pain and cough PROCEDURE: 2 view chest COMPARISON: 07/20/2020 FINDINGS: The lungs are clear. The cardiomediastinal silhouette is within normal limits. There are no pleural effusions. There is no pneumothorax suspected. IMPRESSION: 1: NO ACUTE CARDIOPULMONARY DISEASE. Reviewed, dictated and finalized at location B. ERCIAL LIGHT FIXTURE ASSEMBLER
[2021-03-28 12:02] VITALS: BP 151/90; PULSE 104; RESP 18; TEMP 36.4; O2SAT 97
--- NOTE | 2021-03-28 12:11 | ECG_ITS ---
Measurements Intervals [place] Rate: 80 P: 46 SC: 130 QRS: -22 QRSD: 97 T: 34 QT: 369 QTc: 427 Interpretive Statements SINUS RHYTHM BASELINE ARTIFACT- II, III, AVR, AVF, V1-V6 BORDERLINE ECG Electronically Signed On 03-28-2021 13:04:01 DATA VISUALIZATION DEVELOPER by Adrien Lee D.O.
[2021-03-28 12:59] VITALS: PULSE 79; RESP 21; O2SAT 97
[2021-03-28 13:00] VITALS: BP 148/88; PULSE 84; RESP 19; O2SAT 97
[2021-03-28 13:02] VITALS: O2SAT 97
[2021-03-28 13:07] VITALS: PULSE 82; RESP 22; O2SAT 96
[2021-03-28 13:10] LABS: Basophils Absolute Auto 0.2 K/mm3 (0.0-0.1); Basophils Percent Auto 1.5 % (0.2-1.2); Eosinophils Absolute Auto 0.4 K/mm3 (0-0.3); Eosinophils Percent Auto 3.6 % (0-4.4); Hematocrit 52.1 % (42.0-52.0); Hemoglobin 18.7 g/dL (14.0-18.0); Immature Granulocyte Absolute 0.02 K/mm3 (0.00-0.031); Immature Granulocyte Percent A 0.2 % (0-0.5); Lymphocytes Absolute Auto 2.36 K/mm3 (0.9-3.2); Lymphocytes Percent Auto 21.3 % (18.3-44.2); Mean Corpuscular HGB Conc 35.9 g/dl (32-36); Mean Corpuscular Hemoglobin 32.9 pg (26-34); Mean Corpuscular Volume 91.7 fl (80-100); Mean Platelet Volume 10.2 fl (7.4-10.4); Monocytes Absolute Auto 0.9 K/mm3 (0.1-0.6); Monocytes Percent Auto 7.8 % (2.6-8.5); Neutrophils Absolute Auto 7.3 K/mm3 (1.3-6.7); Neutrophils Percent Auto 65.6 % (45.5-73.1); Platelet Count Result 230 k/mm3 (150-375); Red Blood Count 5.68 M/mm3 (4.6-6.20); Red Cell Distribution Width 12.8 % (11.5-14.5); White Blood Count 11.1 K/mm3 (4.5-10.0)
[2021-03-28 13:18] VITALS: PULSE 81; RESP 22; O2SAT 95
[2021-03-28 13:20] LABS: Alanine Aminotransferase 49 U/L (4-50); Albumin Level 4.7 g/dL (3.5-5.1); Alkaline Phosphatase 97 U/L (38-126); Anion Gap 12 mmol/L (8-16); Aspartate Amino Transferase 31 U/L (17-59); Bilirubin,Total 0.5 mg/dL (0.2-1.3); Blood Urea Nitrogen 15 mg/dL (9-20); Carbon Dioxide 23 mmol/L (22-30); Chloride 105 mmol/L (98-107); Estimated CRCL calculation 94 ml/min; Estimated Glomerular Filt Rate > 60; Glucose 106 mg/dL (65-110); Lipase 45 U/L (23-300); Potassium 4.1 mmol/L (3.4-5.0); Sodium 140 mmol/L (137-145)
[2021-03-28 13:30] LABS: INR 1.1; Prothrombin Time 14.1 Seconds (11.1-14.7)
[2021-03-28 13:31] LABS: Partial Thromboplastin Time 32.2 SECONDS (22.3-36.8); Troponin I < 0.012 ng/mL (0.000-0.034)
--- NOTE | 2021-03-28 13:35 | ED.CHESTPAIN ---
HPI - Chest Pain General Chief Complaint: Chest Pain Stated Complaint: coughing up blood Time Seen by Provider: 03/28/21 13:12 Source: patient and RN notes reviewed Mode of arrival: ambulatory Limitations: no limitations History of Present Illness HPI narrative: 55-year-old male with history of smoking and emphysema presenting to the emergency department for evaluation of hemoptysis. Patient states yesterday morning he first noticed the coughing up of blood. Patient states he did have multiple small clots that he brought up throughout the day. Patient states he did bring up one larger chunk. Patient states over the course of the day it did decrease. Patient states it is still occurring today but significantly less than yesterday. Patient does report some left-sided chest pain. Patient states he has no change in his baseline cough. Patient states he has no change in his baseline shortness of breath. Related Data Allergies Allergy/AdvReac Type Severity Reaction Status Date / Time No Known Allergies Allergy Verified 02/20/21 11:09 Review of Systems Review of Systems: CONSTITUTIONAL: Denies fever, chills, or sweats. EYES: Denies visual changes, redness, or discharge. ENT: Denies rhinorrhea, congestion, sore throat, or otalgia. CARDIOVASCULAR: Left-sided chest pain RESPIRATORY: No change in baseline cough or shortness of breath. Does have new hemoptysis that is improving since yesterday GASTROINTESTINAL: Denies abdominal pain, nausea, vomiting, or diarrhea. GENITOURINARY: Denies dysuria or hematuria. SKIN: Denies rash or itching. MUSCULOSKELETAL: Denies back pain, joint pain, or myalgia. NEUROLOGIC: Denies headache, numbness, or weakness. [facility] Past Medical History Medical History (Updated 03/28/21 @ 15:04 by Lemuel Livingston MD) Abdominal spasms Anxiety Barretts esophagus 3 cm area of Lew's on EGD on 08/29/[address] Ceron. Recheck in 3 years Chronic back pain Chronic knee pain Chronic low back pain X-ray of the lumbar spine on 03/20/2021 reveals previous anterior and posterior fusion at L5-S1 with hardware intact. Mild degenerative disc disease at L3-L4 and mild facet arthritis throughout. Depression Emphysema lung Encounter to establish care Family history of colon cancer Fatty liver Hypertension Lymphadenopathy Otitis media, left Pharyngitis, acute Polyp of colon (08/29/20) 2 polyps on colonoscopy with Dr. Ceron on 08/29/2020 with recheck in 5 years Rib pain on left side Rib pain on right side Right serous otitis media Shortness of breath Tobacco abuse Upper respiratory infection Surgical History Surgical History H/O bilateral inguinal hernia repair H/O spinal fusion Hx of cholecystectomy Family History Family History Sibling Carcinoma of colon Family history of heart disease in male family member before age 55 Diabetes mellitus Hypertension Depression Mother Family history of Hodgkin's lymphoma, Onset Age: 52 Patient's mother is , Onset Age: 52 Hypertension Diabetes mellitus Father Family history of heart disease in male family member before age 55, Onset Age: 82 Heart disease Other Family history of allergic disorder Social History Social History (Updated 03/08/21 @ 13:27 by Deisi Chong MA) Smoking packs per day: 0.5 Smoking cigarettes per day: 10.0 Years smoked: 30 Smoking pack-years: 15.00 Smoking status: Current every day smoker Tobacco type: cigarettes Alcohol intake: former Substance use: never Substance use type: does not use Spiritual care concerns: No Exam Narrative: APPEARANCE: Well appearing, no pain, no distress, well-nourished. HEAD: normocephalic, atraumatic. THROAT: Pharynx clear, no exudate. NECK: Supple. No adenopathy, no masses. RESPIRATORY: Airway patent, respirations nonlabored. Clear to auscultation
--- NOTE | 2021-03-28 14:12 | PC.NURSE ---
Patient requesting to have his IV removed.
--- NOTE | 2021-03-28 15:10 | PC.NURSE ---
Patient stating he is leaving and states time is up. Patient is tired of waiting. EDP Miki aware, patient signing out AMA.
== END 2021-03-28 15:12 | disposition left against medical advice (07) ==
PROVIDERS: Emergency Medicine; Emergency Provider Emergency Medicine; PCP Nurse Practitioner Family
DX: R04.2 Hemoptysis (principal); J43.9 Emphysema, unspecified; K22.70 Barrett's esophagus without dysplasia; I10 Essential (primary) hypertension; F17.210 Nicotine dependence, cigarettes, uncomplicated; Z98.1 Arthrodesis status; R94.31 Abnormal electrocardiogram [ECG] [EKG]
CPT/HCPCS: 36415; 71046; 71275; 80053; 83690; 84484; 85025; 85610; 85730; 93005; 99284; Q9967

== ENCOUNTER 2021-09-19 09:06 | Outpatient (CLI) | payer OTHER, SELFPAY ==
[2021-09-19 09:31] LABS: Basophils Absolute Auto 0.1 K/mm3 (0.0-0.1); Basophils Percent Auto 1.2 % (0.2-1.2); Eosinophils Absolute Auto 0.4 K/mm3 (0-0.3); Eosinophils Percent Auto 3.2 % (0-4.4); Hematocrit 53.9 % (42.0-52.0); Hemoglobin 18.5 g/dL (14.0-18.0); Immature Granulocyte Absolute 0.04 K/mm3 (0.00-0.031); Immature Granulocyte Percent A 0.4 % (0-0.5); Lymphocytes Absolute Auto 2.37 K/mm3 (0.9-3.2); Lymphocytes Percent Auto 20.8 % (18.3-44.2); Mean Corpuscular HGB Conc 34.3 g/dl (32-36); Mean Corpuscular Hemoglobin 32.2 pg (26-34); Mean Corpuscular Volume 93.9 fl (80-100); Mean Platelet Volume 10.2 fl (7.4-10.4); Monocytes Absolute Auto 0.7 K/mm3 (0.1-0.6); Monocytes Percent Auto 6.5 % (2.6-8.5); Neutrophils Absolute Auto 7.7 K/mm3 (1.3-6.7); Neutrophils Percent Auto 67.9 % (45.5-73.1); Platelet Count Result 225 k/mm3 (150-375); Red Blood Count 5.74 M/mm3 (4.6-6.20); Red Cell Distribution Width 12.7 % (11.5-14.5); White Blood Count 11.4 K/mm3 (4.5-10.0)
[2021-09-19 09:55] LABS: Alanine Aminotransferase 77 U/L (6-50); Albumin Level 4.7 g/dL (3.5-5.1); Alkaline Phosphatase 92 U/L (38-126); Anion Gap 7 mmol/L (8-16); Aspartate Amino Transferase 50 U/L (17-59); Bilirubin,Total 0.6 mg/dL (0.2-1.3); Blood Urea Nitrogen 15 mg/dL (9-20); CRP 0.6 mg/dL (<1.0); Calcium 8.5 mg/dL (8.4-10.2); Carbon Dioxide 29 mmol/L (22-30); Chloride 106 mmol/L (98-107); Cholesterol 185 mg/dL (0-200); Estimated Glomerular Filt Rate > 60; Glucose 124 mg/dL (65-110); HDL Direct 36 mg/dL; Potassium 4.2 mmol/L (3.4-5.0); Sodium 142 mmol/L (137-145); Triglycerides 160 mg/dL (<150)
[2021-09-19 10:07] LABS: LDL Cholesterol Direct 107 mg/dL
[2021-09-19 10:15] LABS: Appearance Urine Clear (Clear); Bilirubin Urine Negative (Negative); Blood Urine Negative (Negative); Color Urine Yellow (Yellow); Glucose Urine UA Negative (Negative); Ketones Urine Negative (Negative); Leukocyte Esterase Ur Negative LEU/UL (NEGATIVE); Nitrate Urine Negative (Negative); Protein Urine Negative (Negative); Specific Grav Ur >= 1.030 (1.001-1.035); Urobilinogen Urine 0.2 mg/dL (<2.0); pH Urine 5.5 (5.0-9.0)
[2021-09-19 10:18] LABS: Add Urine Microscopic? NO
[2021-09-19 18:11] LABS: Prostate Specific Antigen 0.8 ng/mL (< OR = 4.0)
[2021-09-19 19:40] LABS: Hemoglobin A1C 5.4 % (<5.7)
[2021-09-24 14:12] LABS: ANA Cascade Screen Negative (Negative)
== END 2021-09-19 09:07 | disposition home or self-care (01) ==
LOC: ANHLAB 09:07
PROVIDERS: PCP Nurse Practitioner Family; Visit Provider Nurse Practitioner Family
DX: Z13.29 Encounter for screening for other suspected endocrine disorder (principal); R73.09 Other abnormal glucose; D72.829 Elevated white blood cell count, unspecified; R91.8 Other nonspecific abnormal finding of lung field; I10 Essential (primary) hypertension; Z13.6 Encounter for screening for cardiovascular disorders; Z12.5 Encounter for screening for malignant neoplasm of prostate
CPT/HCPCS: 36415; 80053; 80061; 81001; 81003; 82607; 82746; 83036; 84153; 84443; 85025; 86038; 86140; G0103

== ENCOUNTER 2021-09-20 08:49 | Outpatient (CLI) | payer OTHER, SELFPAY ==
--- NOTE | 2021-09-22 19:58 | WPDPFTINT ---
PFT Procedure Performed PFT Procedure Performed Spirometry with Pre/Post Bronchodilator Plethysmography (Lung Vol) Diffusing Cap (DLCO) Flow Vol Loop PFT Interpretation DOS:09/20/2021 REQUESTING: Aniyah Rede NP REASON FOR TESTING: emphysema; abnormal CT PULMONARY FUNCTION TESTS Results are reliable and reproducible. Spirometry: Pre-bronchodilator FEV1 is 78%, 3.14 L, within normal range. The pre-bronchodilator FVC is 95%, 4.91 L, normal. The FEV1/FVC ratio is 64%, decreased, showing airflow obstruction. There is no change after bronchodilator. Lung volumes: The total lung capacity is increased 125% predicted, 9.24 L, consistent with hyperinflation. FRC is increased, 195%, 7.51 L. ERV is 78%, 1.32 L, normal. RV is increased, 192%, 4.33 consistent with air trapping. Airway resistance is 150%, increased. Diffusion: DLCO is moderately decreased, 52%. DLCO 62%, still reduced. Flow volume loop: Scooping in the expiratory limb. IMPRESSION: Mild obstructive ventilatory impairment without response to bronchodilator, mild hyperinflation, severe air trapping and a moderate diffusion impairment. This pattern can be seen with emphysema. Lack of response to bronchodilator should not preclude use if clinically indicated. Skye Rush MD
== END 2021-09-20 08:50 | disposition home or self-care (01) ==
LOC: ANHPFT 08:50
PROVIDERS: PCP Nurse Practitioner Family; Visit Provider Nurse Practitioner Family
DX: J43.9 Emphysema, unspecified (principal); R91.8 Other nonspecific abnormal finding of lung field
CPT/HCPCS: 94060; 94726; 94729

== ENCOUNTER 2021-10-27 10:45 | Emergency (ER) | payer OTHER, SELFPAY ==
--- NOTE | ~2021-10-27 | CT_ITS ---
EXAMINATION: CT chest abdomen pelvis w con DATE: 10/27/2021 14:04 INDICATION: Hilar lymphadenopathy, abdominal distention TECHNIQUE: Transaxial computed tomographic images of the chest, abdomen, and pelvis were obtained aft er the administration of 100 cc of Omnipaque 350 intravenous contrast. The dose-length product (DLP) was 1192.84 mGy-cm. Automated exposure control and iterative reconstruction technique were employed. COMPARISON: 03/28/2021, 11/12/2020 FINDINGS: CHEST CT: There is moderate emphysema. There is chronic right hilar and subcarinal lymphadenopathy without sign ificant change. Left hilar and right lower paratracheal lymph nodes are upper limits of normal in siz e. There is a stable lymph node of the left major fissure. There is mild dependent atelectasis. No pl eural effusion or pneumothorax. The heart size is normal. There is mild thoracic spondylosis. ABDOMEN/PELVIS CT: The liver is diffusely low in attenuation when compared with the spleen, consistent with hepatic stea tosis. The gallbladder is surgically absent. The spleen, pancreas, and adrenal glands are normal. The kidneys are unremarkable. The appendix is normal. No pathologically enlarged abdominal or pelvic lym ph nodes are identified. There is no free intraperitoneal gas or evidence of bowel obstruction. There are changes of anterior and posterior fusion at L5-S1. IMPRESSION: 1. No CT correlate for the patient's abdominal distention. 2. Chronic right hilar and mediastinal lymphadenopathy, likely old granulomatous disease. Reviewed, dictated and finalized at location B. IMPRESSION: 1. No CT correlate for the patient's abdominal distention. 2. Chronic right hilar and mediastinal lymphadenopathy, likely old granulomatou s disease.
[2021-10-27 10:53] VITALS: BP 151/99; PULSE 81; RESP 20; TEMP 36.7; O2SAT 98
[2021-10-27 12:26] VITALS: BP 134/80; PULSE 74; RESP 12; O2SAT 97
[2021-10-27 12:50] LABS: Basophils Absolute Auto 0.2 K/mm3 (0.0-0.1); Basophils Percent Auto 1.6 % (0.2-1.2); Eosinophils Absolute Auto 0.3 K/mm3 (0-0.3); Eosinophils Percent Auto 2.9 % (0-4.4); Hematocrit 51.6 % (42.0-52.0); Hemoglobin 17.9 g/dL (14.0-18.0); Immature Granulocyte Absolute 0.02 K/mm3 (0.00-0.031); Immature Granulocyte Percent A 0.2 % (0-0.5); Lymphocytes Absolute Auto 2.41 K/mm3 (0.9-3.2); Lymphocytes Percent Auto 23.4 % (18.3-44.2); Mean Corpuscular HGB Conc 34.7 g/dl (32-36); Mean Corpuscular Hemoglobin 32.1 pg (26-34); Mean Corpuscular Volume 92.6 fl (80-100); Mean Platelet Volume 10.4 fl (7.4-10.4); Monocytes Absolute Auto 0.8 K/mm3 (0.1-0.6); Monocytes Percent Auto 7.4 % (2.6-8.5); Neutrophils Absolute Auto 6.7 K/mm3 (1.3-6.7); Neutrophils Percent Auto 64.5 % (45.5-73.1); Platelet Count Result 227 k/mm3 (150-375); Red Blood Count 5.57 M/mm3 (4.6-6.20); Red Cell Distribution Width 12.8 % (11.5-14.5); White Blood Count 10.3 K/mm3 (4.5-10.0)
[2021-10-27 13:45] LABS: Alanine Aminotransferase 71 U/L (6-50); Albumin Level 4.5 g/dL (3.5-5.1); Alkaline Phosphatase 91 U/L (38-126); Anion Gap 7 mmol/L (8-16); Aspartate Amino Transferase 48 U/L (17-59); Bilirubin,Total 0.6 mg/dL (0.2-1.3); Blood Urea Nitrogen 15 mg/dL (9-20); Calcium 8.8 mg/dL (8.4-10.2); Carbon Dioxide 29 mmol/L (22-30); Chloride 104 mmol/L (98-107); Estimated CRCL calculation 98 ml/min; Estimated Glomerular Filt Rate > 60; Glucose 101 mg/dL (65-110); Potassium 4.4 mmol/L (3.4-5.0); Sodium 140 mmol/L (137-145)
--- NOTE | 2021-10-27 14:35 | PC.NURSE ---
RN in to assess pt. pt. picking at IV site and almost has IV removed. RN educated pt. he cannot remove IV and that it is unsafe. pt. states well I am not staying here. RN educated pt. that IV will be removed upon discharge, RN placed tape over IV to prevent injury and stabilize device. pt. yelled at RN for putting tape on site. pt. yelled at RN to Get out of my room.
--- NOTE | 2021-10-27 15:00 | ED.GENADULT ---
HPI - General Adult General Chief complaint: Abdominal Pain Stated complaint: abd pain, back pain s/p being chased by a skunk Time Seen by Provider: 10/27/21 11:22 History of Present Illness HPI narrative: Patient is a 56-year-old male who presents ER with pain in his low back. He injured himself while running away from a skunk last night. No numbness or tingling the lower extremities. No difficulty with urination/defecation. Patient also reports that he is also here to be seen for abdominal swelling has been occurring. He has been seen by GI and told he has a fatty liver. He is also been told that he had lung nodules in the past. Denies weight loss or weight gain. No difficulty breathing Related Data Allergies Allergy/AdvReac Type Severity Reaction Status Date / Time No Known Allergies Allergy Verified 10/27/21 12:26 [facility] Past Medical History Medical History (Updated 10/27/21 @ 15:28 by Gene Britton MD) Abdominal spasms Abnormal CT scan of lung Anxiety Barretts esophagus 3 cm area of Lew's on EGD on 08/29/[address] Ceron. Recheck in 3 years Chronic back pain Chronic knee pain Chronic low back pain X-ray of the lumbar spine on 03/20/2021 reveals previous anterior and posterior fusion at L5-S1 with hardware intact. Mild degenerative disc disease at L3-L4 and mild facet arthritis throughout. Depression Elevated glucose level Elevated WBC count Emphysema lung Encounter to establish care Family history of colon cancer Fatty liver Hypertension Lymphadenopathy Otitis media, left Pharyngitis, acute Polyp of colon (08/29/20) 2 polyps on colonoscopy with Dr. Ceron on 08/29/2020 with recheck in 5 years Rib pain on left side Rib pain on right side Right serous otitis media Screening for cardiovascular condition Shortness of breath Tobacco abuse Upper respiratory infection Surgical History Surgical History H/O bilateral inguinal hernia repair H/O spinal fusion Hx of cholecystectomy Family History Family History Sibling Carcinoma of colon Family history of heart disease in male family member before age 55 Diabetes mellitus Hypertension Depression Mother Family history of Hodgkin's lymphoma, Onset Age: 52 Patient's mother is , Onset Age: 52 Hypertension Diabetes mellitus Father Family history of heart disease in male family member before age 55, Onset Age: 82 Heart disease Other Family history of allergic disorder Social History Social History Smoking packs per day: 0.5 Smoking cigarettes per day: 10.0 Years smoked: 30 Smoking pack-years: 15.00 Smoking status: Current every day smoker Tobacco type: cigarettes Alcohol intake: former Substance use: never Substance use type: does not use Spiritual care concerns: No Exam Narrative: GENERAL: Well-appearing, well-nourished, and in no acute distress. HEAD: Normocephalic, atraumatic. CHEST: Clear to auscultation. No respiratory distress. HEART: Regular rate and rhythm. Normal peripheral pulses. ABDOMEN: Soft, nontender, nondistended. Back: No reproducible midline tenderness of the T/L-spine. Mild paraspinal muscle tenderness left side in the L5 region. EXTREMITIES: Normal range of motion. No edema. SKIN: Warm, dry, no rash. NEURO: Alert and oriented x3. PSYCH: Normal mood and affect. Course Course Emergency Course: Patient resting comfortably. Will give anti-inflammatories to take along with his muscle relaxers. No evidence of ascites or metastatic disease. Discharge home. Vital Signs Vital signs: Vital Signs Temperature 98.0 F 10/27/21 10:53 Pulse Rate 81 10/27/21 10:53 Respiratory Rate 20 10/27/21 10:53 Blood Pressure 151/99 H 10/27/21 10:53 Pulse Oximetry 98 10/27/21 10:53 Oxygen Delivery Room Air
--- NOTE | 2021-10-27 15:30 | PC.NURSE ---
RN advised pt. to follow up w/ pcp pt states fat chance
== END 2021-10-27 15:30 | disposition home or self-care (01) ==
PROVIDERS: Emergency Provider Emergency Medicine; PCP Nurse Practitioner Family
DX: S39.012A Strain of muscle, fascia and tendon of lower back, initial encounter (principal); J43.9 Emphysema, unspecified; K22.70 Barrett's esophagus without dysplasia; K76.0 Fatty (change of) liver, not elsewhere classified; I10 Essential (primary) hypertension; Z86.010 Personal history of colon polyps; Z98.1 Arthrodesis status; F17.210 Nicotine dependence, cigarettes, uncomplicated; Y93.02 Activity, running; W01.0XXA Fall on same level from slipping, tripping and stumbling without subsequent striking against object, initial encounter
CPT/HCPCS: 36415; 71260; 74177; 80053; 85025; 99284; Q9967

== ENCOUNTER 2021-11-16 07:34 | Outpatient (CLI) | payer OTHER, SELFPAY ==
--- NOTE | 2021-12-23 19:09 | WPDSLEEPSTUD ---
Sleep Study Date of Study: 11/16/21 Ordering Provider: Nasim Martin MD Interpreting Physician: Ritika Juárez DO Sleep Study Type: Split Polysomnogram Height: 1.83 m Weight: 99.79 kg Body Mass Index: 29.8 Neck Circumference (inches): 17 Lawrence: 8 Reason for Sleep Study Daytime hypersomnia Sleep History The patient is a 56-year-old male with anxiety, Lew's esophagus, depression, hypertension, emphysema and tobacco use that had a sleep study ordered by his veneer matcher for evaluation of sleep apnea. The patient rarely awakens from sleep short of breath. He occasionally awakens at night with heartburn, belching or cough. He occasionally snores but it is rarely loud enough that others complain. He constantly has trouble sleeping when he has a cold. Denies waking up gasping for air throughout the night. He denies having breathing problems at night observed by himself or others. He frequently sweats excessively at night. He denies having heart palpitations or irregular heartbeats during the night. He frequently falls asleep during the day but never while driving. He denies sleep paralysis, cataplexy and hypnagogic / hypnopompic hallucinations. He denies feeling afraid of going to sleep. He rarely has nightmares. He rarely remembers his dreams. He rarely has thoughts racing through his mind. He rarely feels sad or depressed. He occasionally has anxiety. He rarely has muscular tension. He occasionally notices parts of his body jerk. He denies kicking during the night. He occasionally has crawling and aching feelings in his legs and frequently has leg pain during the night. He rarely grinds his teeth during sleep but never awakens morning jaw pain. He is constantly bothered by pain during the day and frequently awakened by pain during the night. He constantly wakes up feeling stiff in the morning. He frequently wakes up with sore or achy muscles. He constantly wakes up with pain in the neck, spine and other joints. He goes to bed at 11:00 p.m. on both weekdays and weekends. It takes him 10-20 minutes to fall asleep. He wakes up 1-2 times throughout the night to urinate. It can take him 1-2 hours to fall back asleep. He wakes up at 6:00 a.m. on both weekdays and weekends. He typically gets 4 hours of sleep per night. He will stay in bed for 10 minutes after waking up in the morning. He currently lives with his sister. He will consume caffeinated beverages within 2 hours of bedtime. He does not engage in physical exercise before bedtime. He will watch television before falling asleep. He will take naps in the afternoon or the evening and they are refreshing. He drinks 1 gal of a caffeinated beverage per day. He currently smokes half a pack of cigarettes per day. He denies alcohol and recreational drug use. [facility] Past Medical History Medical History Abdominal spasms Abnormal CT scan of lung Anxiety Barretts esophagus 3 cm area of Lew's on EGD on 08/29/[address] Ceron. Recheck in 3 years Bloating Chronic back pain Chronic knee pain Chronic low back pain X-ray of the lumbar spine on 03/20/2021 reveals previous anterior and posterior fusion at L5-S1 with hardware intact. Mild degenerative disc disease at L3-L4 and mild facet arthritis throughout. Depression Elevated glucose level Elevated WBC count Emphysema lung Encounter to establish care Family history of colon cancer Fatty liver Hypertension Lymphadenopathy Otitis media, left Pharyngitis, acute Polyp of colon (08/29/20) 2 polyps on colonoscopy with Dr. Ceron on 08/29/2020 with recheck in 5 years Rib pain on left side Rib pain on right side Right serous otitis media Screening for cardiovascular condition Shortness of breath Tobacco abuse Upper respiratory infection Surgical History Surgical History H/O bilateral inguin
[2021-12-23 19:33] VITALS: BMI 29.8
== END 2021-11-17 05:06 | disposition home or self-care (01) ==
PROVIDERS: PCP Nurse Practitioner Family; Visit Provider Internal Medicine Pulmonary Disease
DX: G47.33 Obstructive sleep apnea (adult) (pediatric) (principal); G47.10 Hypersomnia, unspecified
CPT/HCPCS: 95811

== ENCOUNTER 2021-11-27 08:00 | Outpatient (CLI) | payer OTHER, SELFPAY ==
--- NOTE | 2021-11-27 08:55 | ECHO_ITS ---
Patient Info Name: Otilio Vazquez Age: 56 years : 1965 Gender: Male Ht: 72 in Wt: 220 lbs BSA: 2.27 m2 HR: 65 bpm BP: 124 / 92 mmHg Technical Quality: Poor Exam Date: 11/27/2021 9:41 AM Exam Location: [facility] Patient Status: Outpatient Admit Date: 11/27/2021 Staff Ordering Physician: Nasim Martin MD Supervisor Carpenters: Hernesto Deal RDCS, RT Attending Provider: Nasim Martin MD Referring Physician: Mario SEQUEIRA; Exam Type: CA echo doppler color flow Study Info Indications R06.02 - Shortness of breath Complete two-dimensional, color flow and Doppler transthoracic echocardiogram is performed. Strain analysis performed. Summary 1. Complete two-dimensional, color flow and Doppler transthoracic echocardiogram is performed. 2. Technically suboptimal study due to poor sonographic images. 3. Left ventricular chamber dimension is normal. 4. Left ventricular systolic function is normal, estimated at 55-60%. 5. The left ventricular diastolic function is grade II diastolic dysfunction. 6. E/e' 6 is not elevated. 7. Global longitudinal strain is mildly abnormal at -16.0%. Left Ventricle E/e' 6 is not elevated. Global longitudinal strain is mildly abnormal at -16.0%. Technically suboptimal study due to poor sonographic images. Left ventricular chamber dimension is normal. Left ventricular systolic function is normal, estimated at 55-60%. The left ventricular diastolic function is grade II diastolic dysfunction. Right Ventricle Right ventricular systolic function is normal and with normal TAPSE 2.0 cm. Right ventricular chamber dimension is normal. Left Atria Left atrial chamber dimension is normal. Right Atria Right atrial chamber dimension is normal. Aortic Valve The aortic valve is not well visualized. Cannot determine number of aortic valve leaflets. There is no aortic valve stenosis based on normal valve area and gradients. There is no aortic valve regurgitation. Pulmonic Valve The pulmonic valve is not well visualized. There is no pulmonic regurgitation. Mitral Valve The mitral valve has not well visualized. There is no mitral valve stenosis. There is no mitral valve regurgitation. Tricuspid Valve The tricuspid valve leaflets are not well visualized. There is no tricuspid valve regurgitation. Pericardium/Pleural There is no pericardial effusion. Inferior Vena Cava Inferior vena cava is not well visualized. Aorta The aortic root size at the sinus of Valsalva is not well visualized. Left Ventricular Outflow Tract Name Value Normal LVOT 2D LVOT Diameter 2.1 cm LVOT Doppler LVOT Peak Gradient 4 mmHg LVOT Mean Gradient 2 mmHg LVOT VTI 22 cm LVOT VTI/AV VTI Ratio 0.8 LVOT Stroke Volume 74 ml LVOT CO 4.4 l/min LVOT CI 1.9 l/min/m2 Mitral Valve Name
--- NOTE | 2021-11-27 12:47 | WPDSIXMINUTE ---
Six Minute Walk Procedure Procedure Performed Pulmonary Stress Test (6 min walk) Six Minute Walk Six Minute Walk: This is a 6 minute walk test. The test was performed and interpreted in accordance with the 2014 ERS/ATS task force guidelines. Findings: The patient's resting room air oxygen saturation measured by pulse oximetry was 96% and heart rate was 67 bpm. Patient ambulated for 305 meters and oxygen saturation remained 93 to 96%. Heart rate at the end of the study was 81 bpm. The patient did not qualify for supplemental oxygen at rest or with ambulation. There are no prior studies for comparison.
== END 2021-11-27 08:01 | disposition home or self-care (01) ==
LOC: ANHPFT 08:02
PROVIDERS: PCP Nurse Practitioner Family; Visit Provider Internal Medicine Pulmonary Disease
DX: R06.02 Shortness of breath (principal); J40 Bronchitis, not specified as acute or chronic; Z72.0 Tobacco use
CPT/HCPCS: 93306; 94618

== ENCOUNTER → 2022-06-01 13:28 | Outpatient (CLI) | payer OTHER, SELFPAY ==
--- NOTE | ~2022-06-01 | XR_ITS ---
XR lumbar spine min 4V DATE: 06/01/2022 13:50 INDICATION: Low back pain and left sciatica for 2 days. No injury. TECHNIQUE: AP, lateral, coned lateral lumbosacral and bilateral oblique views COMPARISON: 03/20/2021 lumbar spine FINDINGS: Bilateral Steffee plates and pedicle screws and intervertebral body cage devices at L5-S1 c onsistent with anterior and posterior surgical fusion. No interval hardware fracture or displacement. There is mild lumbar degenerative disc disease. No fracture or bone destruction or spondylolisthesis is evident. Included pedicles are intact. The sa croiliac joints are intact. IMPRESSION: Status post anterior and posterior surgical fusion at L5-S1 Mild lumbar degenerative disc disease No significant change since 01/18/2022 Reviewed, dictated and finalized at location B.
== END ==
PROVIDERS: PCP Family Medicine; Visit Provider Nurse Practitioner Family
DX: M54.42 Lumbago with sciatica, left side (principal); M51.36 Other intervertebral disc degeneration, lumbar region; Z98.1 Arthrodesis status
CPT/HCPCS: 72110

== ENCOUNTER 2022-07-11 10:15 | Outpatient (RCR) | payer OTHER, SELFPAY ==
--- NOTE | 2022-06-21 09:04 | PTOPEVAL1 ---
Assessment and note entered by Suad Felix, PT, DPT Evaluation Information Assessment Status Evaluation Diagnosis low back pain Onset chronic Subjective Information Pt states he had a lumbar fusion in 1996 and it is starting to cause an increase in pain. He states he uses pain medication to manage his pain. He reports never doing any stretching or exercises to help with his back pain. He states he stays active even though its hell . He states an MRI showed lumbar stenosis. He states he has constant pain at the level of his fusion, intermittent sciatic pain, and shooting pains from his lower back to his thoracic spine, he states his middle back chow. Pt states he is not working, he is trying to get on disability because he is done working . He states he walks about .25-1 miles a day. Pt reports his pain as 100/10. Reported Pain Level Pain Score 4: Self Report Assessment PT Clinical Summary Otilio presents to therapy today for his intial evaluation with a diangosis of chronic low back pain. Today he demonstrates fair lumbar motion without any reports of increased pain. He demonstrates good LE strength and fair core strength. He reports tenderness at karen piriformis muscle belly and demonstrates a (+) slump test karen . Skilled physical therapy services are indicated to improve muscle length, spinal mobility, core strength, and body mechanics. Therapy prognosis is poor as pt seems uninvested in therapy and states he does not believe all this pain is from a tight muscle . Plan of Care Interventions Electrical Stimulation,Gait Training,Hot Pack/Cold Pack,Manual Therapy,Neuro Re-education,Patient/ Caregiver Educati,Therapeutic Activities, Therapeutic Exercise PT Services Indicated Yes Treatment Frequency and 1x/wk for 4 wks per patient request Duration These treatments will address the objective and functional deficits as defined above. The patient will be advanced safely and appropriately in order for the patient to progress towards his/her prior level of function. Additional exercises will be introduced and as well as a comprehensive home exercise program upon discharge, if needed, ?to ensure carryover of functional gains achieved in the clinic. This treatment plan has been reviewed and agreement upon by the patient.
--- NOTE | 2022-07-17 09:47 | PCPTNOTE ---
Patient called & cancelled scheduled re-evaluation for next week, he states he is out of town. He would not like to reschedule until he sees the doctor.
--- NOTE | 2022-08-20 10:22 | PCPTNOTE ---
Called to follow up with pt as he has not been back since 07/04/22. LVM, if we do not hear back from him in a week he will be discharged.
--- NOTE | 2022-08-27 09:40 | PTOPDC ---
Assessment and note entered by Suad Felix, PT, DPT Evaluation Information Assessment Status Discharge - Pt Not Present Diagnosis low back pain Onset chronic Subjective Information Pt called and cancelled his re-evaluation on , and reported he did not want to reschedule until after he followed up with his doctor. Called pt on 08/20/22 to follow up and LVM with instructions to call and reschedule if needed. Have not heard from pt in over a week. He will be discharged at this time. Assessment PT Clinical Summary Otilio completed 3 visits of skilled therapy from to 07/04/22.
== END 2022-08-27 09:53 | disposition home or self-care (01) ==
LOC: ANHGOSHPT 10:15
PROVIDERS: PCP Family Medicine; Visit Provider Nurse Practitioner Family
DX: M54.50 Low back pain, unspecified (principal); G89.29 Other chronic pain
CPT/HCPCS: 97110; 97112; 97140; 97161

== ENCOUNTER 2022-09-20 07:49 | Outpatient (CLI) | payer OTHER, SELFPAY ==
[2022-09-20 08:22] LABS: Basophils Absolute Auto 0.1 K/mm3 (0.0-0.1); Basophils Percent Auto 1.2 % (0.2-1.2); Eosinophils Absolute Auto 0.4 K/mm3 (0-0.3); Eosinophils Percent Auto 3.5 % (0-4.4); Hematocrit 52.4 % (42.0-52.0); Hemoglobin 18.2 g/dL (14.0-18.0); Immature Granulocyte Absolute 0.03 K/mm3 (0.00-0.031); Immature Granulocyte Percent A 0.3 % (0-0.5); Lymphocytes Absolute Auto 2.11 K/mm3 (0.9-3.2); Lymphocytes Percent Auto 18.9 % (18.3-44.2); Mean Corpuscular HGB Conc 34.7 g/dl (32-36); Mean Corpuscular Hemoglobin 32.5 pg (26-34); Mean Corpuscular Volume 93.6 fl (80-100); Mean Platelet Volume 10.7 fl (7.4-10.4); Monocytes Absolute Auto 0.7 K/mm3 (0.1-0.6); Monocytes Percent Auto 6.4 % (2.6-8.5); Neutrophils Absolute Auto 7.8 K/mm3 (1.3-6.7); Neutrophils Percent Auto 69.7 % (45.5-73.1); Platelet Count Result 241 k/mm3 (150-375); Red Cell Distribution Width 12.7 % (11.5-14.5); White Blood Count 11.1 K/mm3 (4.5-10.0)
[2022-09-20 08:24] LABS: Appearance Urine Clear (Clear); Bilirubin Urine Negative (Negative); Blood Urine Negative (Negative); Color Urine Yellow (Yellow); Glucose Urine UA Negative (Negative); Ketones Urine Negative (Negative); Leukocyte Esterase Ur Negative LEU/UL (NEGATIVE); Nitrate Urine Negative (Negative); Protein Urine Negative (Negative); Specific Grav Ur 1.022 (1.001-1.035)
[2022-09-20 08:30] LABS: Hemoglobin A1C 5.4 % (<5.7)
[2022-09-20 08:32] LABS: Add Urine Microscopic? NO
[2022-09-20 08:49] LABS: LDL Cholesterol Direct 114 mg/dL
[2022-09-20 09:02] LABS: Alanine Aminotransferase 54 U/L (6-50); Albumin Level 4.4 g/dL (3.5-5.1); Alkaline Phosphatase 81 U/L (38-126); Anion Gap 7 mmol/L (8-16); Aspartate Amino Transferase 44 U/L (17-59); Bilirubin,Total 0.8 mg/dL (0.2-1.3); Blood Urea Nitrogen 20 mg/dL (9-20); Calcium 8.5 mg/dL (8.4-10.2); Carbon Dioxide 28 mmol/L (22-30); Chloride 104 mmol/L (98-107); Cholesterol 175 mg/dL (0-200); Estimated Glomerular Filt Rate > 60; Glucose 141 mg/dL (65-110); HDL Direct 31 mg/dL; Potassium 4.4 mmol/L (3.4-5.0); Sodium 139 mmol/L (137-145); Triglycerides 143 mg/dL (<150)
[2022-09-20 09:09] LABS: Prostate Specific Antigen 0.9 ng/mL (< OR = 4.0)
== END 2022-09-20 07:50 | disposition home or self-care (01) ==
PROVIDERS: PCP Nurse Practitioner Family; Visit Provider Nurse Practitioner Family
DX: Z13.0 Encounter for screening for diseases of the blood and blood-forming organs and certain disorders involving the immune mechanism (principal); Z13.6 Encounter for screening for cardiovascular disorders; Z13.1 Encounter for screening for diabetes mellitus; Z68.30 Body mass index [BMI] 30.0-30.9, adult; Z13.29 Encounter for screening for other suspected endocrine disorder; I10 Essential (primary) hypertension; Z12.5 Encounter for screening for malignant neoplasm of prostate
CPT/HCPCS: 36415; 80053; 80061; 81003; 83036; 84153; 84443; 85025; G0103

== ENCOUNTER 2022-10-29 09:56 | Outpatient (CLI) | payer OTHER, SELFPAY ==
--- NOTE | ~2022-10-29 | CT_ITS ---
CT Scan of the Chest without Contrast: Clinical Indication: Lung cancer screening, smoking history Technique: Contiguous sections were acquired throughout the chest without intravenous contrast. Dose reduction technique was used on this scan by utilizing automated exposure control and iterative recon struction technique. The dose-length product (DLP) was 218.79 mGy-cm. COMPARISON: 10/27/2021 Findings: There is no evidence of any significant mediastinal, hilar or axillary lymphadenopathy. The mediastin al soft tissues appear normal. There is no evidence of pleural or pericardial effusion. There is moderate to advanced emphysema in the upper lobes. No pulmonary nodule identified. Images through the upper abdomen reveal no abnormalities. Impression: Lung RADS 1: Normal. 12 month follow-up screening CT advised. Moderate to advanced emphysema. Reviewed, dictated and finalized at [facility]. Impression: Lung RADS 1: Normal. 12 month follow-up screening CT advised. Moderate to advanced emphysema.
== END 2022-10-29 09:57 | disposition home or self-care (01) ==
PROVIDERS: PCP Nurse Practitioner Family; Visit Provider Nurse Practitioner Family
DX: Z12.2 Encounter for screening for malignant neoplasm of respiratory organs (principal); Z87.891 Personal history of nicotine dependence
CPT/HCPCS: 71271

== ENCOUNTER 2023-04-15 10:22 | Outpatient (CLI) | payer OTHER, SELFPAY ==
--- NOTE | ~2023-04-15 | XR_ITS ---
Left Hand Technique: PA, oblique, and lateral views were obtained. Clinical History: Pain Findings: No acute fracture or dislocation is seen. Osseous alignment is anatomic. Joint spaces are p reserved. Soft tissues are unremarkable. Impression: Unremarkable left hand. Reviewed, dictated and finalized at location M. ITURE SPRAYER Impression: Unremarkable left hand.
--- NOTE | ~2023-04-15 | XR_ITS ---
Right Hand Technique: PA, oblique, and lateral views were obtained. Clinical History: Pain Findings: No acute fracture or dislocation is seen. Osseous alignment is anatomic. Joint spaces are p reserved. Soft tissues are unremarkable. Impression: Unremarkable right hand. Reviewed, dictated and finalized at location M. ER FEEDER Impression: Unremarkable right hand.
== END 2023-04-15 10:23 | disposition home or self-care (01) ==
PROVIDERS: PCP Nurse Practitioner Family; Visit Provider Nurse Practitioner Family
DX: M79.641 Pain in right hand (principal); M79.642 Pain in left hand; M65.30 Trigger finger, unspecified finger
CPT/HCPCS: 73130

== ENCOUNTER 2023-04-25 13:28 | Outpatient (CLI) | payer OTHER, SELFPAY ==
--- NOTE | ~2023-04-25 | US_ITS ---
EXAMINATION: US soft tissue head and neck DATE: 04/25/2023 13:57 INDICATION: Left face and neck swelling. TECHNIQUE: Multiple grayscale and Doppler ultrasound images of the head and neck were obtained. COMPARISON: None FINDINGS: The left parotid gland and left mandibular gland are normal. There is no abnormal mass or l ymphadenopathy in the left neck. IMPRESSION: 1. No abnormal mass or lymphadenopathy. Reviewed, dictated and finalized at location E. OR JAVA PROGRAMMER
== END 2023-04-25 13:29 | disposition home or self-care (01) ==
PROVIDERS: PCP Nurse Practitioner Family; Visit Provider Nurse Practitioner Family
DX: R22.0 Localized swelling, mass and lump, head (principal)
CPT/HCPCS: 76536

== ENCOUNTER 2023-05-28 08:57 | Outpatient (CLI) | payer OTHER, SELFPAY ==
--- NOTE | 2023-05-28 11:30 | NEURO_ITS ---
Impression: # Complains of numbness of hands. Not diabetic. # Bilateral mild Carpal Tunnel Syndrome. # No ulnar neuropathy. # Normal needle/EMG exam. # Clinical correlation recommended. Nerve Conduction Studies Anti Sensory Summary Table Stim Site NR Peak (ms) P-T Amp (?V) Site1 Site2 Delta-P (ms) Dist (cm) Leon (m/s) Left Median Anti Sensory (2-3nd Digit) Wrist 3.5 33.4 Wrist 2-3nd Digit 3.5 14.0 40 Wrist 3.6 29.0 Wrist 2-3nd Digit 3.5 14.0 40 Right Median Anti Sensory (2-3nd Digit) Wrist 3.3 7.3 Wrist 2-3nd Digit 3.3 14.0 42 Wrist 3.3 15.7 Wrist 2-3nd Digit 3.3 14.0 42 Left Radial Anti Sensory (Base 1st Digit) Wrist 2.0 16.5 Wrist Base 1st Digit 2.0 0.0 Right Radial Anti Sensory (Base 1st Digit) Wrist 2.3 11.1 Wrist Base 1st Digit 2.3 0.0 Left Ulnar Anti Sensory (5th Digit) Wrist 3.0 53.4 Wrist 5th Digit 3.0 14.0 47 Right Ulnar Anti Sensory (5th Digit) Wrist 2.5 20.4 Wrist 5th Digit 2.5 14.0 56 Motor Summary Table Stim Site NR Onset (ms) O-P Amp (mV) Site1 Site2 Delta-0 (ms) Dist (cm) Leon (m/s) Left Median Motor (Abd Poll Brev) Wrist 4.1 1.8 Elbow Wrist 5.5 31.0 56 Elbow 9.6 1.6 Right Median Motor (Abd Poll Brev) Wrist 4.1 1.6 Elbow Wrist 6.0 30.0 50 Elbow 10.1 7.2 Left Ulnar Motor (Abd Dig Minimi) Wrist 2.8 8.0 A Elbow Wrist 5.7 32.0 56 A Elbow 8.5 5.4 Right Ulnar Motor (Abd Dig Minimi) Wrist 2.4 7.1 A Elbow Wrist 5.8 33.0 57 A Elbow 8.2 5.7 F Wave Studies NR F-Lat (ms) L-R F-Lat (ms) Left Median (Mrkrs) (Abd Poll Brev) 31.14 0.98 Right Median (Mrkrs) (Abd Poll Brev) 30.16 0.98 Left Ulnar (Mrkrs) (Abd Dig Min) 31.45 1.62 Right Ulnar (Mrkrs) (Abd Dig Min) 29.83 1.62 EMG Side Muscle Nerve Root Ins Act Fibs Amp Dur Recrt Comment Right 1stDorInt Ulnar C8-T1 Nml Nml Nml Nml Nml Right Ext Indicis Radial (Post Int) C7-8 Nml Nml Nml Nml Nml Right Ext Digitorum Radial (Post Int) C7-8 Nml Nml Nml Nml Nml Right BrachioRad Radial C5-6 Nml Nml Nml Nml Nml Right PronatorTeres Median C6-7 Nml Nml Nml Nml Nml Right Abd Poll Brev Median C8-T1 Nml Nml Nml Nml Nml Right ABD Dig Min Ulnar C8-T1 Nml Nml Nml Nml Nml Left 1stDorInt Ulnar C8-T1 Nml Nml Nml Nml Nml Left Ext Indicis Radial (Post Int) C7-8 Nml Nml Nml Nml Nml Left Ext Digitorum Radial (Post Int) C7-8 Nml Nml Nml Nml Nml Left BrachioRad Radial C5-6 Nml Nml Nml Nml Nml Left PronatorTeres Median C6-7 Nml Nml Nml Nml Nml Left Abd Poll Brev Median C8-T1 Nml Nml Nml Nml Nml Left ABD Dig Min Ulnar C8-T1 Nml Nml Nml Nml Nml MTDD
== END 2023-05-28 08:58 | disposition home or self-care (01) ==
PROVIDERS: PCP Nurse Practitioner Family; Visit Provider Plastic Surgery
DX: G56.03 Carpal tunnel syndrome, bilateral upper limbs (principal)
CPT/HCPCS: 95886; 95911

== ENCOUNTER → 2023-07-02 14:08 | Outpatient (CLI) | payer OTHER, SELFPAY ==
--- NOTE | ~2023-07-02 | XR_ITS ---
EXAMINATION: XR foot RT min 3V DATE: 07/02/2023 14:25 INDICATION: Right foot pain. TECHNIQUE: 4 views of right foot were obtained. COMPARISON: None. FINDINGS: There is mild hallux valgus. No fracture. There is mild osteoarthritis of some of the inter phalangeal joints. There is an enthesophyte of posterior aspect of calcaneal tuberosity. IMPRESSION: 1. Mild hallux valgus. 2. Mild polyarticular osteoarthritis. Reviewed, dictated and finalized at location A.
== END ==
PROVIDERS: PCP Family Medicine; Visit Provider Nurse Practitioner Family
DX: M20.11 Hallux valgus (acquired), right foot (principal); M19.071 Primary osteoarthritis, right ankle and foot
CPT/HCPCS: 73630

== ENCOUNTER 2023-09-19 17:25 | Emergency (ER) | payer OTHER, SELFPAY ==
[2023-09-19 17:52] VITALS: BP 168/96; PULSE 96; RESP 18; TEMP 36.7; O2SAT 98
--- NOTE | 2023-09-19 18:02 | ED.GENADULT ---
HPI - General Adult General Chief complaint: Extremity Injury, Upper Stated complaint: hand swelling after bee sting Time Seen by Provider: 09/19/23 18:01 History of Present Illness HPI narrative: to 8-year-old male presents emergency room for evaluation of left hand swelling. Patient states yesterday he was stung by multiple bees, experienced swelling to his left hand. Took 2 Benadryl last night. States the swelling has not improved. Denies any shortness of breath, difficulty breathing, or posterior pharynx swelling. Related Data Allergies Allergy/AdvReac Type Severity Reaction Status Date / Time No Known Allergies Allergy Verified 09/19/23 18:04 Review of Systems Review of Systems: ROS unremarkable except for noted in HPI PMFSH Past Medical History Medical History Abdominal spasms Abnormal CT scan of lung Acute exacerbation of chronic low back pain Anxiety Barretts esophagus 3 cm area of Lew's on EGD on 08/29/[address] Ceron. Recheck in 3 years Bloating BMI 30.0-30.9,adult Chronic back pain Chronic knee pain Chronic low back pain X-ray of the lumbar spine on 03/20/2021 reveals previous anterior and posterior fusion at L5-S1 with hardware intact. Mild degenerative disc disease at L3-L4 and mild facet arthritis throughout. Depression Elevated glucose level Elevated WBC count Emphysema lung Encounter to establish care Family history of colon cancer Fatty liver Hypertension Left hand pain Lymphadenopathy Otitis media, left Pharyngitis, acute Polyp of colon (08/29/20) 2 polyps on colonoscopy with Dr. Ceron on 08/29/2020 with recheck in 5 years Rib pain on left side Rib pain on right side Right foot pain Right hand pain Right serous otitis media Scab Screening for cardiovascular condition Screening for diabetes mellitus Shortness of breath Swelling of left side of face Tobacco abuse Trigger finger Umbilical hernia Upper respiratory infection Surgical History Surgical History H/O bilateral inguinal hernia repair H/O spinal fusion Hx of cholecystectomy Family History Family History Sibling Carcinoma of colon Family history of heart disease in male family member before age 55 Diabetes mellitus Hypertension Depression Mother Family history of Hodgkin's lymphoma, Onset Age: 52 Patient's mother is , Onset Age: 52 Hypertension Diabetes mellitus Father Family history of heart disease in male family member before age 55, Onset Age: 82 Heart disease Other Family history of allergic disorder Social History Social History Smoking packs per day: 0.5 Smoking cigarettes per day: 10.0 Years smoked: 30 Smoking pack-years: 15.00 Smoking status: Current every day smoker Tobacco type: cigarettes Second hand tobacco smoke exposure: Yes Alcohol intake: former Substance use: never Substance use type: does not use Lack of Transportation: No Lack of Food: Never True Current Housing: I Have Housing Concerned About Future Housing: No Difficulty Paying Gas/Electric Bills: No Difficulty Paying for Meds: No Currently Unemployed: No Education: High School Diploma/GED Difficulty w/ Childcare or Family Care: No Living arrangements: with family Spiritual care concerns: No Exam Narrative: GENERAL: Well-appearing, well-nourished, no physical limitations, and in no acute distress. HEAD: Normocephalic, atraumatic. EYES: Conjunctivae normal, PERRLA and EOMI. ENT: External nose normal, Nares clear, no rhinorrhea or epistaxis. Mucous membranes moist. Oropharynx without tonsillar hypertrophy exudate or other lesions. External ears normal, bilateral TMs normal bilaterally NECK: Supple. No meningeal signs. No a
[2023-09-19] MEDS: dexAMETHasone SOD PHOS INJ 10 MG/ML 1 ML VIAL IM (18:07)
== END 2023-09-19 18:43 | disposition home or self-care (01) ==
PROVIDERS: Emergency Provider Nurse Practitioner Family; PCP Family Medicine
DX: T63.441A Toxic effect of venom of bees, accidental (unintentional), initial encounter (principal); J43.9 Emphysema, unspecified; I10 Essential (primary) hypertension; F17.210 Nicotine dependence, cigarettes, uncomplicated; Z98.1 Arthrodesis status; Z90.49 Acquired absence of other specified parts of digestive tract; Z86.010 Personal history of colon polyps
CPT/HCPCS: 96372; 99283; J1100

== ENCOUNTER 2023-11-07 10:31 | Outpatient (CLI) | payer OTHER, SELFPAY ==
--- NOTE | ~2023-11-07 | XR_ITS ---
Cervical Spine: AP, lateral, open-mouth views Clinical History: Pain Findings: The normal lordotic curve is maintained. The vertebral bodies and posterior elements appea r intact. The intervertebral disc spaces are well maintained. Pre-vertebral soft tissues are unremar kable. Impression: No significant abnormality is seen. Reviewed, dictated and finalized at [facility]. Impression: No significant abnormality is seen.
[2023-11-07 11:09] LABS: Basophils Absolute Auto 0.2 K/mm3 (0.0-0.1); Basophils Percent Auto 1.6 % (0.2-1.2); Eosinophils Absolute Auto 0.3 K/mm3 (0-0.3); Eosinophils Percent Auto 3.5 % (0-4.4); Hemoglobin 18.1 g/dL (14.0-18.0); Immature Granulocyte Absolute 0.03 K/mm3 (0.00-0.031); Immature Granulocyte Percent A 0.3 % (0-0.5); Lymphocytes Absolute Auto 2.36 K/mm3 (0.9-3.2); Lymphocytes Percent Auto 24.6 % (18.3-44.2); Mean Corpuscular HGB Conc 34.8 g/dl (32-36); Mean Corpuscular Hemoglobin 32.2 pg (26-34); Mean Corpuscular Volume 92.5 fl (80-100); Mean Platelet Volume 10.6 fl (7.4-10.4); Monocytes Absolute Auto 0.7 K/mm3 (0.1-0.6); Platelet Count Result 223 k/mm3 (150-375); Red Blood Count 5.62 M/mm3 (4.6-6.20); White Blood Count 9.6 K/mm3 (4.5-10.0)
[2023-11-07 11:10] LABS: Add Urine Microscopic? NO; Appearance Urine Clear (Clear); Bilirubin Urine Negative (Negative); Blood Urine Negative (Negative); Color Urine Yellow (Yellow); Glucose Urine UA Negative (Negative); Ketones Urine Negative (Negative); Leukocyte Esterase Ur Negative LEU/UL (Negative); Nitrate Urine Negative (Negative); Protein Urine Negative (Negative); Specific Grav Ur 1.012 (1.001-1.035); Urobilinogen Urine 0.2 mg/dL (<2.0); pH Urine 5.5 (5.0-9.0)
[2023-11-07 11:26] LABS: Alanine Aminotransferase 75 U/L (6-50); Albumin Level 4.4 g/dL (3.5-5.1); Alkaline Phosphatase 79 U/L (38-126); Anion Gap 7 mmol/L (4-12); Aspartate Amino Transferase 55 U/L (17-59); Bilirubin,Total 1.1 mg/dL (0.2-1.3); Blood Urea Nitrogen 16 mg/dL (9-20); Calcium 8.7 mg/dL (8.4-10.2); Carbon Dioxide 29 mmol/L (22-30); Chloride 101 mmol/L (98-107); Cholesterol 154 mg/dL (0-200); Estimated Glomerular Filt Rate > 60; Glucose 123 mg/dL (65-110); HDL Direct 32 mg/dL; Potassium 3.7 mmol/L (3.4-5.0); Sodium 137 mmol/L (137-145); Triglycerides 181 mg/dL (<150)
[2023-11-07 11:37] LABS: LDL Cholesterol Direct 94 mg/dL
[2023-11-07 15:03] LABS: Hemoglobin A1C 5.6 % (<5.7)
== END 2023-11-07 10:32 | disposition home or self-care (01) ==
PROVIDERS: PCP Family Medicine; Visit Provider Nurse Practitioner Family
DX: I10 Essential (primary) hypertension (principal); K76.0 Fatty (change of) liver, not elsewhere classified; Z13.29 Encounter for screening for other suspected endocrine disorder; Z13.0 Encounter for screening for diseases of the blood and blood-forming organs and certain disorders involving the immune mechanism; Z00.00 Encounter for general adult medical examination without abnormal findings; Z13.6 Encounter for screening for cardiovascular disorders; R73.09 Other abnormal glucose; Z12.5 Encounter for screening for malignant neoplasm of prostate; M54.2 Cervicalgia
CPT/HCPCS: 36415; 72040; 80053; 80061; 81003; 83036; 84153; 84443; 85025; G0103

== ENCOUNTER 2023-11-12 09:44 | Outpatient (CLI) | payer OTHER, SELFPAY ==
--- NOTE | ~2023-11-12 | CT_ITS ---
EXAMINATION: CT lung screening DATE: 11/12/2023 09:56 INDICATION: Z87.891 - Personal history of nicotine dependence TECHNIQUE: Computed tomography (CT) of the chest was performed without intravenous contrast. Addition al 3D reconstructions utilizing coronal maximum intensity projection (MIP) were performed. Automated exposure control and iterative reconstruction technique were employed. The dose-length product was 23 7.97 mGy-cm. COMPARISON: 10/29/2022 FINDINGS: Moderate emphysema. Unchanged 11 x 6 mm flat lenticular nodule along the left major fissure most like ly an intrafissural lymph node. There are a few small calcified nodules consistent with old granuloma tous disease the majority along the pleural and subpleural right lower lobe with additional tiny calc ified nodules in the bilateral upper lobes. No other suspicious pulmonary nodules, pneumonia, pulmona ry edema or pleural effusion. Heart size is normal. Small amount of atherosclerotic coronary artery c alcifications. No pericardial effusion. Thoracic aorta is normal in caliber. No pathologically enlarg ed thoracic lymphadenopathy. Cholecystectomy clips the gallbladder fossa. Mild diffuse hepatic steato sis. Mild thoracic spondylosis. IMPRESSION: 1. Lung-RADS category 2: Benign appearance or behavior. Continue annual screening with noncontrast lo w-dose chest CT in 12 months. Reviewed, dictated and finalized at location B. IMPRESSION: 1. Lung-RADS category 2: Benign appearance or behavior. Continue annual screeni ng with noncontrast low-dose chest CT in 12 months.
== END 2023-11-12 09:45 | disposition home or self-care (01) ==
LOC: ANHIMG 09:44
PROVIDERS: PCP Family Medicine; Visit Provider Nurse Practitioner Family
DX: Z12.2 Encounter for screening for malignant neoplasm of respiratory organs (principal); Z87.891 Personal history of nicotine dependence
CPT/HCPCS: 71271

== ENCOUNTER 2024-01-23 11:22 | Outpatient (CLI) | payer OTHER, SELFPAY ==
--- NOTE | ~2024-01-23 | XR_ITS ---
HISTORY: M25.511 - Pain in right shoulder, limited rom, injury COMPARISON: None TECHNIQUE: 4 views of the right shoulder were performed FINDINGS: No acute fracture. Osteophyte formation is identified within the acromioclavicular joint space, with downsloping. The glenohumeral joint space is maintained The visualized portion of the adjacent right lung is clear. The humeral head is well seated within the glenoid fossa. IMPRESSION: No acute fracture or anterior dislocation. Significant degenerative disease within the acromioclavicular joint, as detailed above. Reviewed, dictated and finalized at location A. ACE GRINDER IMPRESSION: No acute fracture or anterior dislocation. Significant degenerative disease within the acromioclavicular joint, as detaile d above.
== END 2024-01-23 11:23 | disposition home or self-care (01) ==
PROVIDERS: PCP Family Medicine; Visit Provider Nurse Practitioner Family
DX: M25.511 Pain in right shoulder (principal)
CPT/HCPCS: 73030

== ENCOUNTER 2024-03-04 12:08 | Emergency (ER) | payer OTHER, SELFPAY ==
--- NOTE | ~2024-03-04 | XR_ITS ---
EXAMINATION: XR chest 2V DATE: 03/04/2024 12:34 INDICATION: 3 weeks of cough and shortness of breath TECHNIQUE: PA and lateral views of the chest were obtained. COMPARISON: Chest radiograph dated 03/28/2021 FINDINGS: Subtle opacities with bronchial wall thickening the right lower lung zone. Left lung is clear. No ple ural effusion or pneumothorax. The cardiomediastinal silhouette is normal. IMPRESSION: 1. Bronchial wall thickening and subtle opacities in the right lower lung zone suspicious for bronchi tis and developing pneumonia. Reviewed, dictated and finalized at location A. OGRAPH II ENGRAVER IMPRESSION: 1. Bronchial wall thickening and subtle opacities in the right lower lung zone suspicious for bronchitis and developing pneumonia.
--- NOTE | 2024-03-04 12:15 | ED.URI ---
HPI - URI/Sore Throat General Chief Complaint: Upper Respiratory Infection Stated Complaint: Pneumonia Time Seen by Provider: 03/04/24 12:16 Source: patient Mode of arrival: ambulatory Limitations: no limitations History of Present Illness HPI Narrative: Otilio is a 58-year-old male patient presenting to the clinic today with complaints possible pneumonia. He reports he has had cough congestion and shortness of breath for the past 3 weeks. Started out a head cold and settled into his chest. Started cefdinir on Saturday. Contacted his PCP and they sent it in to cover for pneumonia. States he has had 4 doses and is feeling better but he would like to have a chest x-ray. Has been exposed to his nephew who had walking pneumonia. Denies any fevers, chills, body aches. Cough is nonproductive. MD elicited complaint: cough and other (Chest congestion) Related Data Allergies Allergy/AdvReac Type Severity Reaction Status Date / Time No Known Allergies Allergy Verified 02/06/24 09:02 Review of Systems Review of Systems: Pertinent positives per HPI. Patient denies any fever, chills, rash, headache, visual changes, dizziness, chest pain, palpitations, nausea, vomiting, diarrhea, constipation, abdominal pain, or any urinary issues. [facility] Past Medical History Medical History Acute bronchitis Right shoulder pain Cervicalgia BMI 31.0-31.9,adult Right foot pain Swelling of left side of face Right hand pain Trigger finger Left hand pain Umbilical hernia Screening for diabetes mellitus BMI 30.0-30.9,adult Acute exacerbation of chronic low back pain Scab Bloating Screening for cardiovascular condition Elevated glucose level Abnormal CT scan of lung Elevated WBC count Chronic low back pain X-ray of the lumbar spine on 03/20/2021 reveals previous anterior and posterior fusion at L5-S1 with hardware intact. Mild degenerative disc disease at L3-L4 and mild facet arthritis throughout. Lymphadenopathy Right serous otitis media Otitis media, left Abdominal spasms Rib pain on right side Rib pain on left side Upper respiratory infection Pharyngitis, acute Emphysema lung Polyp of colon (08/29/20) 2 polyps on colonoscopy with Dr. Ceron on 08/29/2020 with recheck in 5 years Family history of colon cancer Depression Anxiety Fatty liver Chronic knee pain Hypertension Barretts esophagus 3 cm area of Lew's on EGD on 08/29/[address] Ceron. Recheck in 3 years Encounter to establish care Tobacco abuse CT lung cancer screen 11/12/2023, negative. Moderate emphysema. Shortness of breath Chronic back pain Surgical History Surgical History Hx of cholecystectomy H/O bilateral inguinal hernia repair H/O spinal fusion Family History Family History Sibling Carcinoma of colon Family history of heart disease in male family member before age 55 Diabetes mellitus Hypertension Depression Mother Family history of Hodgkin's lymphoma, Onset Age: 52 Patient's mother is , Onset Age: 52 Hypertension Diabetes mellitus Father Family history of heart disease in male family member before age 55, Onset Age: 82 Heart disease Other Family history of allergic disorder Social History Social History Smoking packs per day: 0.5 Smoking cigarettes per day: 10.0 Years smoked: 30 Smoking pack-years: 15.00 Smoking status: Current every day smoker Tobacco type: cigarettes Second hand tobacco smoke exposure: Yes Alcohol intake: former Substance use: never Substance use type: does not use Do You Feel Safe in your Home?: Yes Lack of Transportation: No Lack of Food: Never True Current Housing: I Have Housing Concerned About Future Housing: No Difficulty Paying Gas/Electric Bills: No Difficulty Paying for Meds: No Currently Unemployed: No Education: High School Diploma/GED Difficulty w/ Childcare or Family Care: No Living arrangements: with family Spiritual care concerns: No Comments At the time of my signature, I reviewed and agree with the nursing past medical, surgical, social, and family history. There is no relevant family history pertinent to the patient complaint. Exam Narrative: General: Well-developed, well nourished, in no apparent distress Head: Normocephalic, atraumatic Eyes: Pupils equally round and reactive to light bilaterally, EOM intact, sclera and conjunctive clear, no discharge, lids normal Ears: TMs intact and clear, ear canals clear, no drainage, grossly hearing normal. Nose: Nares patent, clear discharge, no inflammation, no sinus tenderness. Mouth: Oral pharynx without lesions or masses, good dentition, MMM. Neck: Supple, trachea midline, no enlargement of anterior or posterior cervical nodes, no thyroid masses or goiter palpable. Cardio: Regular rate and rhythm, s1 and s2 normal, no murmur appreciated. Resp: Lung sounds diminished in the bases faint expiratory rhonchi, no rales, wheezing or rubs Course Course Emergency Course: Portions of this record may have been created with voice recognition software. Level of Care: Express Care Visit Vital Signs Vital signs: Vital Signs Temperature 37.2 C 03/04/24 12:18 Pulse Rate 103 H 03/04/24 12:18 Respiratory Rate 20 03/04/24 12:18 Blood Pressure 154/80 H 03/04/24 12:18 Pulse Oximetry 94 03/04/24 12:18 Oxygen Delivery Room Air 03/04/24 12:18 Temperature 37.2 C 03/04/24 12:18 Pulse Rate 103 H 03/04/24 12:18 Respiratory Rate 20 03/04/24 12:18 Blood Pressure 154/80 H 03/04/24 12:18 Pulse Oximetry 94 03/04/24 12:18 Oxygen Delivery Room Air 03/04/24 12:18 Vital signs reviewed MDM - URI/Sore Throat MDM Narrative Medical decision making narrative: At the time of visit patient is resting comfortably on the exam table. Patient appears to be nontoxic. Diagnostics: Chest x-ray was performed and shows bronchial wall thickening and subtle opacities in the right lower lung zone suspicious for bronchitis and developing pneumonia. Plan: Patient has bronchitis with developing early pneumonia. Prescriptions for prednisone, azithromycin, and albuterol inhaler was sent to the pharmacy. Patient's to continue taking the cefdinir. Patient pharmacy is closed due to holiday- does not wish to seed cone picker medications today since his pharmacy is closed and he states he will pick them up tomorrow. Offered to send medication to a different pharmacy and he declined and would like them to be sent to the [facility] in [place]. Supportive measures were discussed with the patient and they voiced understanding discharge instructions and agrees to treatment plan. Return precautions reviewed Differential Diagnosis Differential diagnosis: Likely upper respiratory infection, otitis media, sinusitis, viral infection, bronchitis, influenza, pharyngitis and other (COVID) Imaging Data Radiologist's impression: ITS Impressions Chest X-Ray 03/04/24 12:43 IMPRESSION: 1. Bronchial wall thickening and subtle opacities in the right lower lung zone suspicious for bronchitis and developing pneumonia. Discharge Plan Discharge Clinical Impression: Bronchitis Patient Disposition: Home, Self-Care Condition: Stable Instructions: Antibiotic Form, Acute Bronchitis (ED), Pneumonia (ED) Additional Instructions: Chest x-ray shows bronchitis and early pneumonia. Take prescription medications only as prescribed-albuterol inhaler, prednisone, and azithromycin Continue cefdinir as prescribed Increase fluids and stay well hydrated Tylenol/motrin for pain/fever Flonase and OTC antihistamines as directed Vicks vapor rub to open sinuses Sinus rinses for congestion Cepacol spray, cough drops, throat lozenges, warm tea with honey/lemon, gargle salt water to soothe throat BRAT diet for diarrhea Clear liquids x 24 hours then advance as tolerated for nausea/vomiting Go to the ED if you develop a worsening in your condition- high fever not controlled by Tylenol or Motrin, dehydration, weakness, lethargy, shortness of breath, or chest pain. Follow up with your PCP in 3-5 days if symptoms persist. Patient Language: [place] Citizen Prescriptions: New albuterol sulfate 90 mcg/actuation HFA aerosol inhaler 2 puff inhalation Q4-6H PRN (Reason: shortness of breath or wheezing) 30 Days Qty: 8.5 0RF prednisone 20 mg tablet 40 mg PO DAILY 5 Days Qty: 10 0RF azithromycin 250 mg tablet See Rx Instructions .ROUTE .COMPLEX Qty: 6 0RF Rx Instructions: For 250 mg dose pack: take 500 mg today (day 1), then 250 mg for 4 days (days 2-5) No Action metoprolol succinate 50 mg tablet extended release 24 hr 50 mg PO DAILY Qty: 90 3RF albuterol sulfate 90 mcg/actuation HFA aerosol inhaler 1 - 2 inh inhalation Q4-6H PRN (Reason: shortness of breath or wheezing) Qty: 8.5 2RF naproxen 500 mg tablet 500 mg PO BID PRN (Reason: pain) Qty: 60 11RF Anoro Ellipta 62.5-25 mcg/actuation blister with device See Rx Instructions .ROUTE .COMPLEX Qty: 60 5RF Dose Instruction: INHALE 1 PUFF BY MOUTH DAILY Rx Instructions: INHALE 1 PUFF BY MOUTH DAILY omeprazole 20 mg capsule,delayed release(DR/EC) 20 mg PO DAILY Qty: 30 5RF cyclobenzaprine 10 mg tablet 10 mg PO BID PRN (Reason: muscle spasm) Qty: 60 5RF gabapentin 100 mg capsule 100 mg PO BID Qty: 60 5RF cefdinir 300 mg capsule 300 mg PO Q12H Qty: 20 0RF Follow-up/Referrals: Aniyah Reed NP [Primary Care Provider] - Time of Disposition: 12:50 Quality NIHSS Nursing Documentation ED NIHSS nursing documentation: reviewed/agree
[2024-03-04 12:18] VITALS: BP 154/80; PULSE 103; RESP 20; TEMP 37.2; O2SAT 94
--- OUTSIDE RECORDS SUMMARY | 2024-03-11 06:55 | XMS_ITS | Patient Health Summary ---
Author Organization [facility] Address [address] [place] [address] Care Team Providers Care Mortgage Protection Specialist Name Role Phone Dioni Sinha MD Primary Care Provider [phone] Note from [facility],non-owned Affiliates and Associated Physician Practices is amultiple site organization consisting of ambulatory clinics and hospital sitesin [place], [place], [place] and [place]. This disclosure is being madepursuant to the Care Everywhere program and may not contain all information available regarding this patient. Last updated 17.[facility] Medications Be aware that medications may not be up to date on this document. Always verify current medications with the patient. No known medications Active Problems No known active problems Social History Tobacco Use Types Packs/Day Years Used Date Smoking Tobacco: Every Day Cigarettes 1 27 Smokeless Tobacco: Never Alcohol Use Standard Drinks/Week Comments No 0 (1 standard drink = 0.6 oz pur e alcohol) Sex and Gender Information Value Date Recorded Sex Assigned at Not on file Gender Identity Not on file Sexual Orientation Not on file Last Filed Vital Signs Vital Sign Reading Time Taken Comments Blood Pressure 151/84 10/08/2017 1:36 PM CDT Pulse 85 10/08/2017 1:36 PM CDT Temperature 37 ??C (98.6 ??F) 10/08/2017 1:36 PM CDT Respiratory Rate 18 10/08/2017 1:36 PM CDT Oxygen Saturation 97% 10/08/2017 1:36 PM CDT Inhaled Oxygen Concentration - - Weight 96.9 kg (213 lb 9.6 oz) 10/08/2017 1:36 P M CDT Height 180.3 cm (5' 11 ) 10/08/2017 1:36 PM CDT Body Mass Index 29.79 10/08/2017 1:36 PM CDT Care Teams Mortgage Protection Specialist Relationship Specialty Start Date End Date Dioni Sinha MD [address] [place] [id number] PCP - General Internal Medicine 09/05/17
--- OUTSIDE RECORDS SUMMARY | 2024-03-11 06:55 | XMS_ITS | Referral Summary ---
Author Organization [facility] Address [address] [place] [address] Care Team Providers Care Roller Presser Operator Name Role Phone Dioni Sinha MD Primary Care Provider [phone] Source Comments [facility] [employer],non-owned Affiliates and Associated Physician Practices is amultiple site organization consisting of ambulatory clinics and hospital sitesin [place], [place], [place] and [place]. This disclosure is being madepursuant to the Care Everywhere program and may not contain all information available regarding this patient. Last updated 17.[facility] [employer] Medications Be aware that medications may not [...] Mass Index 29.79 10/08/2017 1:36 PM CDT Plan of Treatment Not on file Care Teams Roller Presser Operator Relationship Specialty Start Date End Date Dioni Sinha MD [address] [place] [phone] PCP - General Internal Medicine 09/05/17
--- OUTSIDE RECORDS SUMMARY | 2024-03-11 06:55 | XMS_ITS | Encounter Summary ---
Author Organization [facility] Address [address] [place] [address]. [place], [place] [id number] [place] [id number] Care Team Providers Care Boat Engines Installer Name Role Phone Tc Villalobos MD Primary Care Provider Unavailabl e Encounter Details Date Type Department Care Team (Latest Contact Info) Description 12/04/2017 Scan HEALTH INFO [facility] Scanned, Documents Social History Tobacco Use Types Packs/Day Years Used Date Smoking Tobacco: Never Assessed Sex and Gender Information Value Date Recorded Sex Assigned at Not on file Legal Sex Male 7:42 PM CDT Gender Identity Not on file Sexual Orientation Not on file documented as of this encounter Plan of Treatment Not on file documented as of this encounter Visit Diagnoses Not on filedocumented in this encounter Care Teams Boat Engines Installer Relationship Specialty Start Date End Date Tc Villalobos MD PCP - General FAMILY MEDICINE SPORTS MEDICINE 06/15/20 documented as of this encounter
--- OUTSIDE RECORDS SUMMARY | 2024-03-11 06:55 | XMS_ITS | Clinical Summary ---
Author Organization [facility] Address [address] [place] [address]. [place] [address] [place] [address] Care Team Providers Care Environmental Health Safety Engineer Name Role Phone Tc Villalobos MD Primary Care Provider Unavailabl e Social History Tobacco Use Types Packs/Day Years Used Date Smoking Tobacco: Never Assessed Sex and Gender Information Value Date Recorded Sex Assigned at Not on file Legal Sex Male 7:42 PM CDT Gender Identity Not on file Sexual Orientation Not on file Plan of Treatment Health Maintenance Due Date Last Done Comments Colorectal Cancer Screening Colonoscopy (10 Years) 1966 Annual Physical 1969 Hepatitis C 1984 DTaP, Tdap and Td Vaccines ( 1 - Tdap) 1985 Hepatitis B Vaccines (1 of 3 - 19+ 3-dose series) 1985 Zoster Vaccines (1 of 2) 2016 COVID-19 Vaccine (2023-2 5 season) 2023 Influenza Adult (#1) 2023 Meningococcal Vaccine Aged Out No kasia adriana eligible based on patient's age to complete this topic Pneumococcal Vaccine: Pediat rics (0 to 5 Years) and At-Risk Patients (6 to 64 Years) Aged Out No longer eligible b ased on patient's age to complete this topic RSV Immunizations Under 20 Months Aged Out No longer eligible based on patient's age to complete this topic Insurance LR Care Teams Environmental Health Safety Engineer Relationship Specialty Start Date End Date Tc Villalobos MD PCP - General FAMILY MEDICINE SPORTS MEDICINE 06/15/20
--- OUTSIDE RECORDS SUMMARY | 2024-03-11 06:55 | XMS_ITS | Encounter Summary ---
Author Organization [facility] Address [address] [place] [address] Care Team Providers Care Safety Intern Name Role Phone Dioni Sinha MD Primary Care Provider [phone] Encounter Details Date Type Department Care Team (Late st Contact Info) Description 10/08/2017 1:45 PM CDT Office Visit [facility] - Orthopedics [address] ([place], [place]), [place] [address] Reji Kohler MD [address] [place] [address] Chronic thoracic back pain, unspecified back pain laterality (Primary Dx) Social History Tobacco Use Types Packs/Day Years Used Date Smoking Tobacco: Every Day Cigarettes 1 27 Smokeless Tobacco: Never Alcohol Use Standard Drinks/Week Comments No 0 (1 standard drink = 0.6 oz pur e alcohol) Sex and Gender Information Value Date Recorded Sex Assigned at Not on file Gender Identity Not on file Sexual Orientation Not on file documented as of this encounter Last Filed Vital Signs Vital Sign Reading [...] Mass Index 29.79 10/08/2017 1:36 PM CDT documented in this encounter Progress Notes * Yevgeniy Watson MD - 10/10/2017 2:51 PM CDT [facility] Note Otilio Vazquez 52 y.o. male CSN: [id number] Date of service: 10/10/2017 Chief Complaint: No chief complaint on file. HPI: Mr. Vazquez is a 52 y.o. male referred by his primary care physician Dr. Augustine who presents to clinic with 5 years of thoracic back pain. Onset of symptoms was gradual with unchanged course since that time. The pain is located in the mid to lower back which the patient describes as L9 and L10. He has a history of L5- S1 fusion from 1995. Patient describes the pain as well-localized, continuous, burning and rated as severe. He also reports chronic burning in his bilateral upper extremities. Patient denies numbness, paresthesias. Symptoms are aggravated by physical activity. Symptoms improvewith rest. The patient has been seeing pain management and has had injections in the past which helped but he does not remember exactly where the injections were placed. The patient is a current smoker. PMHx: Pancreatitis, HTN, arthritis, OCAMPO, GERD, umbilical hernia, barkley's esophagus, IBD, smoking PSHx: L5-S1 fusion (1995), inguinal hernia repair (1995), laparoscopic cholecystectomy (2014) Social Hx: Social History Substance Use Topics ??? Smoking status: Current Every Day Smoker Packs/day: 1.00 Years: 27.00 Types: Cigarettes ??? Smokeless tobacco: Never Used ??? Alcohol use No Family Hx: family history is not on file. Allergies: Allergies not on file Medications: No current outpatient prescriptions on file. No current facility-administered medications for this visit. Review of Systems: Pertinent items are noted in HPI Vitals: BP 151/84 Pulse 85 Temp 98.6 ??F (37 ??C) (Oral) Resp 18 Ht 5' 11 (1.803 m) Wt 213 lb 9.6 oz (96.9kg) SpO2 97% BMI 29.79 kg/m2 Body mass index is 29.79 kg/(m^2). PHYSICAL EXAM: General appearance: alert, no distress, cooperative Neck: C-collar/Calvert J: absent, Tenderness to palpation: absent, Back: Tenderness to palpation: present near the thoracolumbar junction and lumbar spine, range of motion is decreased Bilateral Upper Extremity: Motor: 5/5 finger flexor, 5/5 small finger abduction, 5/5 wrist extension, 5/5 wrist flexion, 5/5 biceps, 5/5 Triceps function, 5/5 deltoid function. Sensory: intact to light touch in a C5-T1 nerve distribution. Peralta's sign is negative. Reflexes: Biceps: Normal Triceps: Normal BR: Normal Bilateral Lower Extremity: Motor: intact EHL/AT/GSC/Quad/Hamstrings/Hip flexors. 5/5 EHL, 5/5 AT, 5/5 GSC, 5/5 Quad, 5/5 Hamstring, 5/5 Hip flexors. Sensation: intact to light touch L3-S1 distribution distally Clonus: absent Reflexes: Knee Jerk: Normal Achilles: Normal Babinski: down going Other findings: - SLR, - KEYSHAWN Oswestry = 48 Imaging: MRI thoracic spine from [facility] 07/13/17 demonstrates some mild degenerative changes with no significant deformity, stenosis or signs of instability. T10 vertebral body hemangioma noted. Assessment/Plan Chronic thoracic back pain, unspecified back pain laterality This is a 52 y.o. male with thoracic spondylosis Mr. Vazquez was counseled as to his diagnosis He demonstrated understanding Advised patient to obtain records of his previous injections as well as his MRI of lumbar spine Activity: as tolerated Continue with pain management Recommend smoking cessation Prescriptions: None Follow up with Dr. Kohler as needed He will call in the interm with any questions or concerns. Patient seen and plan discussed with Dr. Jose F Watson MD 10/10/2017 2:53 PM Attending Physician Supervisory Note I personally interviewed and examined the patient and agree with the doctor above. He will follow up with his pain management provider to discuss location of the injections and consider a lumbar MRI.He would need these records and imaging studies as well as smoking cessation prior to further exploration of operative intervention. Reji Kohler MD * Manuel Morris - 10/08/2017 1:36 PM CDT New patient is here today for consultation for back pain. Chief Complaint: No chief complaint on file. BP 151/84 Pulse 85 Temp 98.6 ??F (37 ??C) (Oral) Resp 18 Ht 1.803 m (5' 11 ) Wt 96.9 kg (213 lb 9.6oz) SpO2 97% BMI 29.79 kg/m2 documented in this encounter Plan of Treatment Not on file documented as of this encounter Visit Diagnoses Diagnosis Chronic thoracic back pain, unspecified back pain laterality- Primary documented in this encounter Care Teams Safety Intern Relationship Specialty Start Date End Date Dioni Sinha MD [address] [place] [id number] PCP - General Internal Medicine 09/05/17 documented as of this encounter
--- OUTSIDE RECORDS SUMMARY | 2024-03-11 06:55 | XMS_ITS | Clinical Summary ---
Author Organization [facility] Address [address] [place] [address] Care Team Providers Care Business Operations Analyst Name Role Phone Dioni Sinha MD Primary Care Provider [phone] Source Comments [facility] [employer],non-owned Affiliates and Associated Physician Practices is amultiple site organization consisting of ambulatory clinics and hospital sitesin [place], [place] and [place]. This disclosure is being madepursuant to the Care Everywhere program and may not contain all information available regarding this patient. Last updated 17.[facility] [employer] Medications Be aware that medications may not [...] 10/08/2017 1:36 PM CDT Plan of Treatment Health Maintenance Due Date Last Done Comments COLOGUARD (AGES 45-75) - COL ON CA SCREENING 1966 COLON MONITORING 1966 COLONOSCOPY - COLON CA SCREENING 1966 CT COLONOGRAPHY - COLON CA SCREENING 1966 Colorectal Cancer Screening 1966 FIT - COLON CA SCREENING 1966 FLEX SIG - COLON CA SCREENING 1966 LIPID TESTING 1966 PNEUMOCOCCAL VACCINE (1 of 2 - PCV) 1972 HIV SCREENING 1981 HEPATITIS C SCREENING 04/18/1984 DTAP/TDAP/TD VACCINES (1 - Tdap) 1985 HEPATITIS B VACCINE (1 of 3 - 19+ 3-dose series) 1985 ZOSTER VACCINE (1 of 2) 2016 SCREENING FOR DIABETES 10/08/2017 DEPRESSION SCREENING 03/04/2023 COVID-19 VACCINE (1 - 2023-2 5 season) 2023 INFLUENZA VACCINE (#1) 2023 HIB VACCINE Aged Out No longer eligi ble based on patient's age to complete this topic HPV VACCINE Aged Out No longer eligi ble based on patient's age to complete this topic MENINGOCOCCAL VACCINE Aged Out No kasia adriana eligible based on patient's age to complete this topic Care Teams Business Operations Analyst Relationship Specialty Start Date End Date Dioni Sinha MD [address] [place] [phone] PCP - General Internal Medicine 09/05/17
--- OUTSIDE RECORDS SUMMARY | 2024-03-11 06:55 | XMS_ITS | Encounter Summary ---
Author Organization [facility] Address [address] [place] [address]. [place], [place] [id number] [place] [address] Care Team Providers Care Custom Shoe Designer And Maker Name Role Phone Tc Villalobos MD Primary Care Provider Unavailabl e Encounter Details Date Type Department Care Team (Latest Contact Info) Description 06/15/2020 Scan HEALTH INFO [facility] Scanned, Documents Social [...] on filedocumented in this encounter Care Teams Custom Shoe Designer And Maker Relationship Specialty Start Date End Date Tc Villalobos MD PCP - General FAMILY MEDICINE SPORTS MEDICINE 06/15/20 documented as of this encounter
--- OUTSIDE RECORDS SUMMARY | 2024-03-11 06:55 | XMS_ITS | Encounter Summary ---
Author Organization [facility] Address [address] [place] [address] Care Team Providers Care Quartz Miner Blasting Name Role Phone Unavailable Primary Care Provider Unavailabl e Reason for Visit * Reason Onset Date Comments Referral 07/24/2017 Encounter Details Date Type Department Care Team (Late st Contact Info) Description 07/24/2017 Telephone [facility] - Orthopedics [address] [place] [phone] Genevieve Guaman [facility] Referral Social History Tobacco Use Types Packs/Day Years Used Date Smoking Tobacco: Never Assessed Sex and Gender Information Value Date Recorded Sex Assigned at Not on file Gender Identity Not on file Sexual Orientation Not on file documented as of this encounter Miscellaneous Notes * Telephone Encounter - Genevieve Guaman [facility] - 07/24/2017 11:24 AM CDT Received referral from [facility] for patient thoracic back pain. Attempted to schedule patient with Dr. Reji Kohler patient was not available at time of call and did not have voice mail set up. If patient calls to schedule please instruct he will need to hand carry his MRI disc in to his appointment. documented in this encounter Plan of Treatment Not on file documented as of this encounter Visit Diagnoses Not on filedocumented in this encounter
--- OUTSIDE RECORDS SUMMARY | 2024-03-11 06:55 | XMS_ITS | Continuity of Care Document ---
Author Organization [facility] Address [address] [place] [address] Care Team Providers [facility] Sales Name Role Phone Tc Park APRN Attending Provider Israel Palmer MD Primary Care Provider Israel Palmer MD Referring Provider Brendan Sterling APRN Emergency Provider Aniyah Reed NP Attending Provider [phone] Care Teams Patient Care Team Team Status: Active Member Role Status Aaron Palmer MD Primary Care Provider Active Visit Care Team Team Status: Inactive Member Role Status Aaron Reed NP Attending Provider Active Israel Palmer MD Referring Provider Active Visit Care Team Team Status: Inactive Member Role Status Aaron Park APRN Attending Provider Active Israel Palmer MD Primary Care Provider, Referri ng Provider Active Visit Care Team Team Status: Inactive Member Role Status Aaron Palmer MD Primary Care Provider Active Brendan Sterilng APRN Emergency Provider Active Visit Care Team Team Status: Inactive Member Role Status Aaron Palmer MD Primary Care Provider Active Tc Park APRN Attending Provider Active Visit Care Team Team Status: Inactive Member Role Status Aaron Palmer MD Primary Care Provider Active Aniyah Reed NP Attending Provider Active Visit Care Team Team Status: Inactive Member Role Status Aaron Palmer MD Primary Care Provider Active Aniyah Reed NP Attending Provider Active Chief Complaint and Reason for Visit Chief Complaint Admit Date COPD September 09, 2023 9:30a m hand swelling after bee sting September 19, 2023 5:25pm Wellness Exam November 06, 2023 9:37am Encounter for screening for malignant ne oplasm of November 07, 2023 10:31am hx of nicotine depend November 11 9:44am Pain in right shoulder January 22 11:22am Reason for Visit Admit Date COPD (chronic obstructive pulmonary dise ase) September 09, 2023 9:30am KETURAH (obstructive sleep apnea) September 09, 2023 9:30am Tobacco abuse September 09, 2023 9:30a m Barretts esophagus November 06, 2023 9:37am BMI 31.0-31.9,adult November 06, 2023 9:37am Cervicalgia November 06, 2023 9:37am Chronic low back pain November 05 9:37am Colon cancer screening November 05 9:37am COPD (chronic obstructive pulmonary dise ase) November 06, 2023 9:37am Fatty liver November 06, 2023 9:37am Hypertension November 06, 2023 9:37am Tobacco abuse November 06, 2023 9:37am Encounter for wellness examination [facility] 2023 9:37am Reason for Referral Referring Provider Name Referring Provider Address Referring Provider Phone Referral Date Requested Appointment Date Referral Reason Jonas Unger January 24, 2024 M25.511 - Pain in right shoulder January 24, 2024 M25.511 - Pain in right shoulder Allergies, Adverse Reactions, Alerts No known allergies Social History Smoking Status Status Start Date End Date Date of Observa tion Smokes tobacco daily (finding) November 06, 2023 10:10am Observation Status Observation Response Date of Response Has Lack of Trans Kept You From Med Appts or Getting Meds? No February 16, 2022 8:56am In Past 12 Months, Were You Worried Your Food Would Run Out? Never True February 16, 2022 8:56am What is Your Housing Situation Today? I Have Housing February 16, 2022 8:56am Are You Worried That in Next 2 Mo, You Won't Have Housing? No February 16, 2022 8:56 am Do You Have Trouble Paying Your Heating Or Electricity Bill? No February 16, 2022 8:56am Do You Have Trouble Paying For Medicines? No February 16, 2022 8:56am Are You Currently Unemployed and Looking for Work? No February 16, 2022 8:56am Highest Level of Education Completed High School Diploma/GED February 16, 2022 8:56am Do You Have Trouble With Childcare/Care of a Family Member? No February 16, 2022 8:56am alcohol intake former February 16, 022 8:56am Substance use type does not use February 8:56am Patient Sex Male January 23, 2 024 3:55pm Assigned Sex Male April Gender Identity Cisgender/Not transg bella (finding) November 07, 2023 Family History Relationship Condition Age at Onset Recorded Date/T og Not Specified Family history of allergic disorder Unkn own sibling Carcinoma of colon Unknown Family history of he art disease in male family member before age 55 Unknown Diabetes mellitus Unknown Hypertension Unknown Depression Unknown mother Family history of Hodgkin's lymphoma 52 Patient's mother is 52 Hypertension Unknown Diabetes mellitus Unknown father Family history of he art disease in male family member before age 55 82 Heart disease Unknown Problems Active Problems Medical Problem Onset Date Status Comments Left hand pain Unknown Active Right hand pain Unknown Active Rib tenderness Unknown Active Abnormal CT scan of lung Unknown Active Scab Unknown Active Elevated glucose level Unknown Active KETURAH (obstructive sleep apnea) Unknown Active Screening for diabetes mellitus Unknown Active Colon cancer screening Unknown Active Rib pain on right side Unknown Active Rib pain on left side Unknown Active Family history of colon cancer Unknown Active Right serous otitis media Unknown Active Screening for cardiovascular condition Unknown Active Encounter to establish care Unknown Active Acute exacerbation of chroni c low back pain Unknown Active Shortness of breath Unknown Active Abdominal spasms Unknown Active Chronic low back pain Unknown Active X-ray of the lumbar spine on 03/20/2021 reveals previous anterior and posterior fusion at L5-S1 with hardware intact. Mild degenerative disc disease at L3-L4 and mild facet arthritis throughout. Trigger finger, left Unknown Active Fatty liver Unknown Active Upper respiratory infection Unknown Active Anxiety Unknown Active Depression Unknown Active Umbilical hernia Unknown Active Elevated WBC count Unknown Active Lymphadenopathy Unknown Active Daytime hypersomnia Unknown Active Swelling of left side of face Unknown Active Emphysema lung Unknown Active Tobacco abuse Unknown Active CT lung cancer screen 11/12/2023, negative. Moderate emphysema. Bloating Unknown Active Trigger finger Unknown Active BMI 30.0-30.9,adult Unknown Active BMI 31.0-31.9,adult Unknown Active Chronic back pain Unknown Active Chronic knee pain Unknown Active Right shoulder pain Unknown Active Right foot pain Unknown Active COPD (chronic obstructive pulmonary disease) Unknown Active Cervicalgia Unknown Active Otitis media, left Unknown Active Barretts esophagus Unknown Active 3 cm area of Lew's on EGD on 08/29/[address] Ceron. Recheck in 3 years Abdominal pain Unknown Active Bilateral carpal tunnel syndrome Unknown Active Hypertension Unknown Active Polyp of colon August 29, 2020 Active 2 polyps o n colonoscopy with Dr. Ceron on 08/29/2020 with recheck in 5 years Inactive/Resolved Problems Medical Problem Onset Date Status Comments Acquired clubbing of nails Unknown Resolved Hordeolum externum of right upper eyelid Unknown Resolved Low back strain Unknown Resolved Upper respiratory infection Unknown Resolved Hemoptysis Unknown Resolved Hemoptysis, unspecified Unknown Resolved Acute viral syndrome Unknown Resolved Hepatic steatosis Unknown Resolved Lymphadenopathy Unknown Resolved Accidental bee sting Unknown Resolved Hx of cholecystectomy Unknown Resolved Pharyngitis, acute Unknown Resolved Acute serous otitis media of right ear Unknown Re solved Acute serous otitis media of right ear Unknown Re solved Abdominal pain Unknown Resolved Abdominal pain, chronic, generalized Unknown Reso lved Medications Medication Status Dose Units Route Directions Qty Days St art Date Stop Date End Date Instructions Adherence Metoprolol Succinate 50 mg tablet extended release 24 hr Active 50 MG PO DAILY 90 July 01, 2023 11:00p m Albuterol Sulfate 90 mcg/actuati on HFA aerosol inhaler Active 1 - 2 INHALA TION INHALA TION EVERY 4 - 6 HOURS as needed for shortness of breath or wheezing 8.5 September 12, 2022 11:00p m Naproxen 500 mg tablet Active 500 MG PO TWICE A DAY as needed for pain 60 October 03, 2023 9:18am Umeclidiniu m-Vilantero l (Anoro Ellipta) 62.5-25 mcg/actuati on blister with device Active 0 .ROUTE .COMPLEX 60 2023 10:39a m INHALE 1 PUFF BY MOUTH DAILY Omeprazole 20 mg capsule,del ayed release(DR/ EC) Active 20 MG PO DAILY 30 2023 7:30am Cyclobenzap rine 10 mg tablet Active 10 MG PO TWICE A DAY as needed for muscle spasm 60 r 2023 8:22am Gabapentin 100 mg capsule Active 100 MG PO TWICE A DAY 60 2023 8:22am Immunizations Immunization Event Date Not Given Reason Dose Number Plate Finisher Lot Number Vaccine Information Statement (VIS) Detail Administration Location SARS-COV-2 (COVID-19) Pfizer July 07, 2020 SARS-COV-2 (COVID-19) Pfizer July 28, 2020 Relevant Diagnostic Tests and/or Laboratory Data Laboratory Results Test Date/Time Result Interpretation Reference Range Result Comment Performing Site White Blood Count November 07, 2023 9:44am 9.6 K/mm3 4.5-10.0 [facility] [id number] [facility] [address] [address] Red Blood Count November 07, 2023 9:44am 5.62 M/mm3 4.6-6.20 [facility] [id number] [facility] [address] [address] Hemoglobin November 07, 2023 9:44am 18.1 g/dL Above high normal 14.0-18.0 [facility] [id number] [facility] [address] [address] Hematocrit November 07, 2023 9:44am 52.0 % 42.0-52.0 [facility] [id number] [address] [place] [address] Mean Corpuscular Volume November 07, 2023 9:44am 92.5 fL 80-100 [facility] [id number] [facility] [address] [address] Mean Corpuscular Hemoglobin November 07, 2023 9:44am 32.2 pg 26-34 [facility] [id number] [facility] [address] [address] Mean Corpuscular Hemoglobin Concent November 07, 2023 9:44am 34.8 g/dL 32-36 [facility] [id number] [facility] [address] [address] Red Cell Distribution Width November 07, 2023 9:44am 13.0 % 11.5-14.5 [facility] [id number] [facility] [address] [address] Platelet Count November 07, 2023 9:44am 223 k/mm3 150-375 [facility] [id number] [facility] [address] [address] Mean Platelet Volume November 07, 2023 9:44am 10.6 fL Above high normal 7.4-10.4 [facility] [id number] [facility] [address] [address] Nucleated Red Blood Cells % November 07, 2023 9:44am 0.0 % 0.0-0.2 [facility] [id number] [address] [place], [place] [id number] Immature Granulocyte % (Auto) November 07, 2023 9:44am 0.3 % 0-0.5 [facility] [id number] [address] [place] [address] Neutrophils (%) (Auto) November 07, 2023 9:44am 63.0 % 45.5-73.1 [facility] [id number] [address] [place] [address] Lymphocytes (%) (Auto) November 07, 2023 9:44am 24.6 % 18.3-44.2 [facility] [id number] [address] [place] [address] Monocytes (%) (Auto) November 07, 2023 9:44am 7.0 % 2.6-8.5 [facility] [id number] [address] [place] [address] Eosinophils (%) (Auto) November 07, 2023 9:44am 3.5 % 0-4.4 [facility] [id number] [address] [place] [address] Basophils (%) (Auto) November 07, 2023 9:44am 1.6 % Above high normal 0.2-1.2 [facility] [id number] [address] [place], [place] [phone] Nucleated RBC Absolute Count (auto) November 07, 2023 9:44am 0.000 K/mm3 0.0-0.012 [facility] [id number] [address] [place] [address] Absolute Immature Granulocyte (auto November 07, 2023 9:44am 0.03 K/mm3 0.00-0.031 [facility] [id number] [address] [place] [address] Absolute Neutrophils (auto) November 07, 2023 9:44am 6.0 K/mm3 1.3-6.7 [facility] [id number] [address] [place] [address] Lymphocytes # (Auto) November 07, 2023 9:44am 2.36 K/mm3 0.9-3.2 [facility] [id number] [address] [place], [place] [phone] Monocytes # (Auto) November 07, 2023 9:44am 0.7 K/mm3 Above high normal 0.1-0.6 [facility] [id number] [address] [address] Eosinophils # (Auto) November 07, 2023 9:44am 0.3 K/mm3 0-0.3 [facility] [id number] [address] [address] Basophils # (Auto) November 07, 2023 9:44am 0.2 K/mm3 Above high normal 0.0-0.1 [facility] [id number] [address] [address] Urine Color November 07, 2023 9:46am Yellow Yellow [facility] [id number] [facility] [address] [address] Urine Appearance November 07, 2023 9:46am Clear Clear [facility] [id number] [facility] [address] [address] Urine pH November 07, 2023 9:46am 5.5 5.0-9.0 [facility] [id number] [address] [place] [address] Urine Specific Hazel November 07, 2023 9:46am 1.012 1.001-1.03 5 [facility] [id number] [facility] [address] [address] Urine Protein November 07, 2023 9:46am Negative mg/dL Negative [facility] [id number] [facility] [address] [address] Urine Glucose (UA) November 07, 2023 9:46am Negative mg/dL Negative [facility] [id number] [address] [place] [address] Urine Ketones November 07, 2023 9:46am Negative mg/dL Negative [facility] [id number] [facility] [address] [address] Urine Blood (Manual) November 07, 2023 9:46am Negative Negative [facility] [id number] [facility] [address] [address] Urine Nitrate November 07, 2023 9:46am Negative Negative [facility] [id number] [facility] [address] [address] Urine Bilirubin November 07, 2023 9:46am Negative Negative [facility] [id number] [facility] [address] [address] Urine Urobilinogen November 07, 2023 9:46am 0.2 mg/dL <2.0 [facility] [id number] [facility] [address] [address] Urine Leukocyte Esterase November 07, 2023 9:46am Negative FERNY/UL Negative [facility] [id number] [facility] [address] [address] Sodium Level November 07, 2023 9:43am 137 mmol/L 137-145 [facility] [id number] [address] [place] [address] Potassium Level November 07, 2023 9:43am 3.7 mmol/L 3.4-5.0 [facility] [id number] [address] [place] [address] Chloride Level November 07, 2023 9:43am 101 mmol/L 98-107 [facility] [id number] [address] [place] [address] Carbon Dioxide Level November 07, 2023 9:43am 29 mmol/L 22-30 [facility] [id number] [address] [place] [address] Anion Gap November 07, 2023 9:43am 7 mmol/L 4-12 [facility] [id number] [address] [place] [address] Blood Urea Nitrogen November 07, 2023 9:43am 16 mg/dL 9-20 [facility] [id number] [address] [place] [address] Creatinine November 07, 2023 9:43am 1.00 mg/dL 0.7-1.3 [facility] [id number] [address] [place] [address] Estimat Glomerular Filtration Rate November 07, 2023 9:43am > 60 >59 > OR = 60 ml/min/1.73 square metersThe MDRD formula used to calculate the eGFR result has not been validated in patients > 70 years of age. [facility] [id number] [facility] [address] [address] Estimated Creatinine Clearance Calc November 07, 2023 9:43am Not Reportable [facility] [id number] [facility] [address] [address] Glucose Level November 07, 2023 9:43am 123 mg/dL Above high normal 65-110 [facility] [id number] [facility] [address] [address] Hemoglobin A1c November 07, 2023 9:43am 5.6 % <5.7 <5.7: Decreased risk of diabetes 5.7-6.0: Increased risk of diabetes 6.1-6.4: Higher risk of diabetes> or = 6.5: Consistent with diabetes [facility] [id number] [address] [place] [address] Calcium Level November 07, 2023 9:43am 8.7 mg/dL 8.4-10.2 [facility] [id number] [address] [place] [address] Total Bilirubin November 07, 2023 9:43am 1.1 mg/dL 0.2-1.3 [facility] [id number] [address] [place] [address] Aspartate Amino Transf (AST/SGOT) November 07, 2023 9:43am 55 U/L 17-59 [facility] [id number] [address] [place] [address] Alanine Aminotransfer ase (ALT/SGPT) November 07, 2023 9:43am 75 U/L Above high normal 6-50 [facility] [id number] [address] [place] [address] Total Protein November 07, 2023 9:43am 8.0 g/dL 6.3-8.2 [facility] [id number] [address] [place] [address] Albumin November 07, 2023 9:43am 4.4 g/dL 3.5-5.1 [facility] [id number] [address] [place] [address] Triglycerides Level November 07, 2023 9:43am 181 mg/dL Above high normal <150 [facility] [id number] [address] [place] [address] Cholesterol Level November 07, 2023 9:43am 154 mg/dL 0-200 [facility] [id number] [address] [place] [address] LDL Cholesterol Direct November 07, 2023 9:43am 94 mg/dL <130 mg/dl [id number] mg/dl Borderline High Risk >160 mg/dl High Risk [facility] [id number] [address] [place] [address] HDL Cholesterol Direct November 07, 2023 9:43am 32 mg/dL Expected Range > 35 mg/dl [facility] [id number] [address] [place] [address] Alkaline Phosphatase November 07, 2023 9:43am 79 U/L 38-126 [facility] [id number] [address] [address] Prostate Specific Antigen November 07, 2023 9:43am 1.0 ng/mL <4.0 Plate Finisher: ITelagenMeth od: ImmunoassayPSA results determined by assays using different manufacturers or methods may not be comparable. [facility] [id number] [address] [place] [address] Thyroid Stimulating Hormone (TSH) November 07, 2023 9:43am 2.570 [iU]/mL 0.465-4.68 0 [facility] [id number] [address] [address] Vital Signs Vital Reading Result Reference Range Collection Date/Time Height 71 [in_i] September 09, 2023 8:21am Weight 102.05 kg September 09, 2023 8:21am Body Temperature 97.9 [degF] 97.6-99.6 September 08, 2 024 8:21am Heart Rate 75 /min 60-100 September 09, 2023 8:21am Respiratory rate 18 /min -September 08, 2 024 8:21am Oxygen saturation by Pulse oximetry 97 % 90-100 September 09, 2023 8:21a m BP Systolic 124 mm[Hg] 100-140 September 09, 2023 8:21am BP Diastolic 80 mm[Hg] 60-90 September 09, 2023 8:21am BMI (Body Mass Index) 31.4 kg/m2 September 082023 8:21am Height 71 [in_i] September 19, 2023 4:52pm Weight 102.60 kg September 19, 2023 4:52pm Body Temperature 98.0 [degF] 97.6-99.6 September 19, 2023 4:52pm Heart Rate 96 /min 60-100 September 19, 2023 4:52pm Respiratory rate 18 /min -September 19, 2023 4:52pm Oxygen saturation by Pulse oximetry 98 % 90-100 September 19, 2023 4:52 pm BP Systolic 168 mm[Hg] 100-140 September 19, 2023 4:52pm BP Diastolic 96 mm[Hg] 60-90 September 19, 2023 4:52pm Height 71 [in_i] November 06, 2023 9:06am Weight 101.17 kg November 06, 2023 9:06am Heart Rate 88 /min 60-100 November 06, 2023 9:06am Respiratory rate 16 /min 12-20 November 052023 9:06am Oxygen saturation by Pulse oximetry 94 % 90-100 November 06, 2023 9:06am BP Systolic 150 mm[Hg] 100-140 November 06, 2023 10:10am BP Diastolic 92 mm[Hg] 60-90 November 06, 2023 10:10am BMI (Body Mass Index) 31.1 kg/m2 2023 9:06am Insurance Providers Guarantor Otilio Vazquez Address [address] [place] [phone] Contact Info. Home Phone: Payer Policy Id Coverage Id Subscriber's Name Subscriber Id Effective Date Expiration Date [place] [id number] Otilio Vazquez [id number] [place] [id number] Otilio Vazquez [id number] Self Pay Self N/A Encounters Encounter Location(s) Arrival/Admit Date Discharge/Depart Date Provider(s) Departed Physician/Prov ider Office Visit [facility] September 09, 2023 8:30am September 09, 2023 8:54am Tc Park Departed Emergency [facility] Emergency Department September 19, 2023 4:25pm September 19, 2023 5:43pm Departed Physician/Prov ider Office Visit [facility] November 06, 2023 8:37am November 06, 2023 9:56am Aniyah Reed Departed [facility] November 07, 2023 9:31am November 07, 2023 9:32am Aniyah Reed Departed [facility] November 12, 2023 8:44am November 12, 2023 8:45am Tc Park Departed [facility] January 23, 2024 11:22am January 23, 2024 11:23am Aniyah Reed Recent Diagnosis Onset Date Admit Date COPD (chronic obstructive pulmonary disease) Unk fritzn September 09, 2023 9:30am KETURAH (obstructive sleep apnea) Unknown Ju 2023 9:30am Tobacco abuse Unknown September 09, 2023 9 :30am Barretts esophagus Unknown November 9:37am BMI 31.0-31.9,adult Unknown November 9:37am Cervicalgia Unknown November 05 9:37am Chronic low back pain Unknown November 06, 2023 9:37am Colon cancer screening Unknown November 06, 2023 9:37am COPD (chronic obstructive pulmonary disease) Unk nown November 06, 2023 9:37am Fatty liver Unknown November 05 9:37am Hypertension Unknown November 05 9:37am Tobacco abuse Unknown November 05 9:37am Encounter for wellness examination Unknown November 06, 2023 9:37am Mental Status Observation Response Date Recorded oriented to person Yes November 10:11am oriented to place Yes November 06, 2023 10:11am oriented to time Yes November 06, 2023 10:11am Assessments Diagnosis Onset Date Resolution Status Admit Date COPD (chronic obstructive pulmonary disease) acute September 08 9:30am KETURAH (obstructive sleep apnea) acute September 09, 2023 9 :30am Tobacco abuse acute September 08 9:30am Barretts esophagus acute Septem 2023 9:37am BMI 31.0-31.9,adult acute Septe mb2023 9:37am Cervicalgia acute November 9:37am Chronic low back pain acute Sep 2023 9:37am Colon cancer screening acute Se pt2023 9:37am COPD (chronic obstructive pulmonary disease) acute November 9:37am Fatty liver acute November 9:37am Hypertension acute November 9:37am Tobacco abuse acute November 052023 9:37am Encounter for wellness examination noneactive November 05 9:37am Plan of Treatment Author Aniyah Reed [facility] Authored November 06, 2023 10:11am pt appears to be stable. Obt ain previously ordered labs. f/u in 6months, sooner as needed chronic and stable. Treated with Anoro Ellipta daily and albuterol as needed. follows with pulmonology with upcoming lung cancer screening test. chronic and stable. continue daily walks, naproxen, gabapentin, and cyclobenzaprine up to date with next colonoscopy in August [address] scan on 11/12/20. improve diet and exercise to lose weight. Check labs mildly elevated today. Reports he will get it down with exercise. He does not want medication increased. Monitor at home. Call for readings consistently >140/90 treated with daily omeprazole. due to surveillance EGD, defers for now as he is moving soon. urged to quit improve diet and exercise to lose weight obtain xray. denies radiculitis. continue naproxen and gabapentin. Author [facility] Authored September 09, 2023 4:17a m GOLD grade 2 group B COPD Continue Anoro 1inh daily and albuterol PRN. Stay UTD on vaccinations, encourage daily exercise as tolerated. F/u 1 year or PRN. The risks of untreated sleep apnea include memory impairment, brain dysfunction, cognitive decline, uncontrolled hypertension, weight gain, arrhythmias, fatigue, increased risk for diabetes, increased risk for heart attack and stroke. We discussed his sleep study. He will try to make attempt at using BiPAP to treat his sleep apnea. smoking cessation recommended. *Due for LDCT next month Discussed patient's tobacco use. Advised patient to quit and impact of smoking. Stopping smoking is the most important choice that can be made to improve overall health. The use of nicotine patches and nicotine gum may help. We discussed ways to assist with tobacco cessation including taking a Quit Date, eliminating tobacco from the home, anticipating tobacco cravings. Cravings typically last 5 minutes. Patient will have alternative plans when tobacco craving strike. Possibilities include brushing teeth, working a puzzle, taking a walk, chewing gum, anything that can last 5 minutes until craving subsides. 5-283-[phone] ; assistance with a real person. Follow-up discussion of progress at each visit encounter. 3-7 minutes spent during smoking cessation education. Future Tests Future scheduled test information is unavailable Pending Tests Pending diagnostic test information is unavailable Future Visits Future appointment information is unavailable Referrals to Other Providers Reason for Referral Referral Start Date Provider Provider Contact Information Provider Address [phone] - Pain in right shoulder January 24, 2024 Giovanni Magana MD [facility] Phone: [facility] [address] [place] [address] [facility] [address] Israel Palmer MD Work Phone: [address] [address] [address] [facility] [address] Future Procedures Future procedure information is unavailable Future Medications Future medication information is unavailable Patient Instructions Instruction Admit Date COPD (Chronic Obstructive Pulmonary Dise ase) (AC) September 09, 2023 9:30am Antibiotic Form Insect Bite or Sting (ED) September 19, 2023 5:25pm COPD (Chronic Obstructive Pu lmonary Disease) (AC) Hypertension (AC) Back Pain (AC) Back Pain (GEN) Back Pain in Older Children and Adolescents (GEN) Back Pain in Children (GEN) November 06, 2023 9:37am
--- OUTSIDE RECORDS SUMMARY | 2024-03-11 06:55 | XMS_ITS | Encounter Summary ---
Author Organization [facility] - [facility] Address [address] [place] [address]. [place] [address] [place] [address] Care Team Providers Care Lithographic General Worker Name Role Phone Tc Villalobos MD Primary Care Provider Unavailabl e Reason for Visit * Reason Comments Image (SCAN) Encounter Details Date Type Department Care Team (Latest Contact Info) Description 11/30/2016 Scan HEALTH INFO SRVCS Scanned, Documents Image (SCAN) Social History Tobacco Use Types Packs/Day Years Used Date Smoking Tobacco: Never Assessed Sex and Gender Information Value Date Recorded Sex Assigned at Not on file Legal Sex Male 7:42 PM CDT Gender Identity Not on file Sexual Orientation Not on file documented as of this encounter Plan of Treatment Not on file documented as of this encounter Procedures Procedure Name Priority Date/Time Associated Diagnosis Comments IMAGE GENERIC 11/30/2016 documented in this encounter Results * IMAGE GENERIC (11/30/2016) Anatomical Region Laterality Modality Other 11/30/2016 Narrative 11/30/2016 Ordered by an unspecified provider. us Documents Scanned SCANNING Final Result documented in this encounter Visit Diagnoses Not on filedocumented in this encounter Care Teams Lithographic General Worker Relationship Specialty Start Date End Date Tc Villalobos MD PCP - General FAMILY MEDICINE SPORTS MEDICINE 06/15/20 documented as of this encounter
--- OUTSIDE RECORDS SUMMARY | 2024-03-11 06:55 | XMS_ITS | Encounter Summary ---
Author Organization [facility] - [facility] Address [address] [place] [address]. [place] [address] [place] [address] Care Team Providers Care Auditing Manager Name Role Phone Tc Villalobos MD Primary Care Provider Unavailabl e Reason for Visit * Reason Comments MRI (SCAN) Encounter Details Date Type Department Care Team (Latest Contact Info) Description 07/13/2017 Scan HEALTH INFO SRVCS Scanned, Documents MRI (SCAN) Social History Tobacco Use Types Packs/Day [...] Procedure Name Priority Date/Time Associated Diagnosis Comments MRI GENERIC 07/13/2017 documented in this encounter Results * MRI GENERIC (07/13/2017) Anatomical Region Laterality Modality Other 07/13/2017 Narrative 07/13/2017 Ordered by an unspecified provider. us Documents Scanned SCANNING Final Result documented in this encounter Visit Diagnoses Not on filedocumented in this encounter Care Teams Auditing Manager Relationship Specialty Start Date End Date Tc Villalobos MD PCP - General FAMILY MEDICINE SPORTS MEDICINE 06/15/20 documented as of this encounter
--- OUTSIDE RECORDS SUMMARY | 2024-03-11 06:56 | XMS_ITS | Encounter Summary ---
Author Organization [facility] Address [address] [place] [address]. [place], [place] [address] [place] [address] Care Team Providers Care Tobacco Feeder Catcher Name Role Phone Unavailable Primary Care Provider Unavailabl e Encounter Details Date Type Department Care Team (Late st Contact Info) Description 11/29/1994 Abstract [place] [address] , Generic Conversion, Social History Tobacco Use Types Packs/Day Years [...]
--- OUTSIDE RECORDS SUMMARY | 2024-03-11 06:56 | XMS_ITS | Encounter Summary ---
Author Organization [facility] Address [address] [place] [address]. [place] [address] [place] [address] Care Team Providers Care Tilting Head Band Sawyer Name Role Phone Unavailable Primary Care Provider Unavailabl e Encounter Details Date Type Department Care Team (Late st Contact Info) Description 04/05/1999 Emergency [facility] [place] [address] Anibal Lewis MD [address] [place] [address] Social History Tobacco Use Types Packs/Day Years [...]
--- OUTSIDE RECORDS SUMMARY | 2024-03-11 06:56 | XMS_ITS | Encounter Summary ---
Author Organization [facility] Address [address] [place] [address]. [place], [place] [address] [place] [address] Care Team Providers Care Gaming Host Name Role Phone Unavailable Primary Care Provider Unavailabl e Encounter Details Date Type Department Care Team (Late st Contact Info) Description 07/15/1996 Abstract [place] [address] , Generic Conversion, Social History [...]
--- OUTSIDE RECORDS SUMMARY | 2024-03-11 06:56 | XMS_ITS | Clinical Summary ---
Author Organization [facility] Address [address] [place] [address] Phone Care Team Providers Care Stock Taker Name Role Phone Alicia Larios MD Primary Care Provider [phone] Nasim Braden MD Unavailable [phone] Vanda Aponte APRN, BRAND LEADER Unavailable Allergies No known active allergies Medications gabapentin (NEURONTIN) 800 MG Tablet Take 800 mg by mouth 3 times daily. Active traMADol (ULTRAM) 50 MG Tablet Take 50 mg by mouth every 6 hours as needed for Pain. Active hydrochlorothia zide 25 MG Tablet Take 25 mg by mouth daily. Active hyoscyamine (LEVSIN) 0.125 MG Tablet Take 1 Tab by mouth every 4 hours as needed for Cramping. 120 Tab 3 6 Active hydrocortisone 2.5 % Cream Apply 2 times daily. Apply to affected area(s) as directed. 30 g 6 6 Active ALPRAZolam (XANAX) 0.5 MG Tablet Take 0.5 mg by mouth once. Take 1 tablet 1 hour prior to MRI and repeat if needed. No refills Quantity #2 Active amitriptyline (ELAVIL) 25 MG Tablet TAKE 1 TABLET BY MOUTH NIGHTLY DIRECTED 90 Tab 3 6 Active Omeprazole 20 MG Tablet Delayed Response Take 2 Tabs by mouth daily. 60 Tab 6 7 Active omeprazole (PRILOSEC) 40 MG CAPSULE DELAYED RELEASE Take 1 Cap by mouth daily. 30 Cap 6 7 Active lidocaine (LMX) 4 % Cream APPLY 1 GRAM TO BOTH KNEES UP TO THREE TIMES DAILY 30 g 2 7 Active DOK 100 MG Capsule TAKE 1 CAPSULE BY MOUTH TWICE DAILY NEEDED FOR CONSTIPATION 180 Cap 8 Active Active Problems Problem Noted Date Diagnosed Date Low back pain 09/22/2015 Spinal stenosis of thoracolumbar region 09/22/19 16 Lew's esophagus without dysplasia 06/28/2015 Gastroesophageal reflux disease without esophagi tis 06/28/2015 Abdominal cramping 06/28/2015 Right upper quadrant pain 06/28/2015 Primary osteoarthritis of both knees 05/09/2015 Chronic thoracic spine pain 05/09/2015 Tobacco dependence 05/09/2015 Family History Medical History Relation Name Comments Colon Cancer Brother Heart Attack Father Pacemaker Maternal Grandfather Other-comment Maternal Grandmother Cancer Mother hodgkins lympho ma Diabetes Mother Hypertension Mother Osteoarthritis Mother No Known Problems Paternal Grandfather Other-comment Paternal Grandmother Relation Name Status Comments Brother Father Maternal Grandfather Maternal Grandmother Mother Paternal Grandfather Paternal Grandmother Social History Tobacco Use Types Packs/Day Years Used Date Smoking Tobacco: Every Day Cigarettes 1 24 Smokeless Tobacco: Never Tobacco Cessation:Ready to Q uit: No; Counseling Given: No Alcohol Use Standard Drinks/Week Comments No 0 (1 standard drink = 0.6 oz pure alcohol) rarely-has a few beers a week but sometimes if it is a holiday weekend he will drink a 6 pack or greater Sex and Gender Information Value Date Recorded Sex Assigned at Not on file Legal Sex Male 11:16 PM CDT Gender Identity Not on file Sexual Orientation Not on file Occupation Industry Job Start Date Job End Date unemployed Not on file Not on file Not on file Last Filed Vital Signs Vital Sign Reading Time Taken Comments Blood Pressure 120/82 09/22/2015 12:56 PM CDT Pulse 65 09/22/2015 12:56 PM CDT Temperature 36.2 ??C (97.2 ??F) 09/22/2015 12:56 PM C DT Respiratory Rate 16 09/22/2015 12:56 PM CDT Oxygen Saturation 96% 09/22/2015 12:56 PM CDT Inhaled Oxygen Concentration - - Weight 89.4 kg (197 lb) 09/22/2015 12:56 PM CDT Height 182.9 cm (6') 09/22/2015 12:56 PM CDT Body Mass Index 26.72 09/22/2015 12:56 PM CDT Plan of Treatment Health Maintenance Due Date Last Done Comments Hepatitis C Virus (HCV) Screening 1966 TdaP Immunization 1966 Pneumococcal Immunization Co mbined (1 of 2 - PCV) 1972 Hepatitis B Immunization (1 of 3 - 19+ 3-dose series) 1985 Cologuard 2016 Immunochemical Fecal Occult Blood 2016 Pneumococcal Immunization (5 0+ years) (1 of 1 - PCV) 2016 Zoster Immunization (1 of 2) 2016 PSA Discussion 2021 Influenza Immunization (#1) 2023 SARS-COV-2 Immunization (1 - season) 2023 Colonoscopy 07/13/2025 07/14/2015 Colorectal Cancer Screening 07/13/2025 Respiratory Syncytial Virus (RSV) Immunization (Adult) (1 - 1-dose 75+ series) 2041 07/14/2015 Meningococcal Immunization (ACWY) Aged Out No longer eligible based on patient's age to complete this topic Rotavirus Immunization Aged Out No lo nger eligible based on patient's age to complete this topic Procedures Procedure Name Priority Date/Time Associated Diagnosis Comments COLONOSCOPY Routine 07/14/2015 from Last 3 Months or Most Recently Relevant to Health Maintenance Results * COLONOSCOPY (07/14/2015) Alicia Larios MD PROCEDURE/MINOR SURGICAL ORDERABLES Final Result from Last 3 Months or Most Recently Relevant to Health [place] [id number] MEDICAID [employer] Care Teams Stock Taker Relationship Specialty Start Date End Date Alicia Larios MD [address] [place] [address] PCP - General Family Medicine 01/10/15 Nasim Braden MD [address] [address] General Surgery 02/10/15 Vanda Aponte APRN, BRAND LEADER [address] [address] Nurse Practitioner Advanced Practice Nurse 09/22/15
--- OUTSIDE RECORDS SUMMARY | 2024-03-11 06:56 | XMS_ITS | Encounter Summary ---
Author Organization [facility] Address [address] [place] [address]. [place] [address] [place] [address] Care Team Providers Care Electrical Worker Name Role Phone Unavailable Primary Care Provider Unavailabl e Encounter Details Date Type Department Care Team (Late st Contact Info) Description 07/02/1996 Abstract [place] [address] Madelyn Vaughn MD [address] [place] [address] Social History Tobacco Use Types Packs/Day Years [...]
--- OUTSIDE RECORDS SUMMARY | 2024-03-11 06:56 | XMS_ITS | Encounter Summary ---
Author Organization [facility] Address [address] [place] [address]. [place], [place] [address] [place] [address] Care Team Providers Care Maritime Officer Name Role Phone Unavailable Primary Care Provider Unavailabl e Encounter Details Date Type Department Care Team (Late st Contact Info) Description 07/31/1996 Abstract DANDY CONVERSION ONE [place], [place] [id number] , Generic Conversion, Social History Tobacco Use [...]
--- OUTSIDE RECORDS SUMMARY | 2024-03-11 06:56 | XMS_ITS | Encounter Summary ---
Author Organization [facility] Address [address] [place] [address]. [place], [place] [address] [place] [address] Care Team Providers Care Clinical Team Lead Name Role Phone Unavailable Primary Care Provider Unavailabl e Encounter Details Date Type Department Care Team (Late st Contact Info) Description 06/08/1998 [place] [address] , Generic Conversion, Social History [...]
--- OUTSIDE RECORDS SUMMARY | 2024-03-11 06:56 | XMS_ITS | Encounter Summary ---
Author Organization [facility] Address [address] [place] [address]. [place], [place] [address] [place] [address] Care Team Providers Care Multisensor Intelligence Officer Name Role Phone Unavailable Primary Care Provider Unavailabl e Encounter Details Date Type Department Care Team (Late st Contact Info) Description 07/03/1996 Abstract [place] [address] , Generic Conversion, Social History [...]
--- OUTSIDE RECORDS SUMMARY | 2024-03-11 06:56 | XMS_ITS | Encounter Summary ---
Author Organization [facility] Address [address] [place] [address]. [place], [place] [address] [place] [address] Care Team Providers Care Stores Assistant Name Role Phone Unavailable Primary Care Provider Unavailabl e Encounter Details Date Type Department Care Team (Late st Contact Info) Description 04/14/1999 Abstract DANDY CONVERSION ONE [place], [place] [id number] , Generic Conversion, Social History Tobacco Use [...]
--- OUTSIDE RECORDS SUMMARY | 2024-03-11 06:56 | XMS_ITS | Encounter Summary ---
Author Organization [facility] Address [address] [place] [address]. [place], [place] [address] [place] [address] Care Team Providers Care Shirt Folding Machine Operator Name Role Phone Unavailable Primary Care Provider Unavailabl e Encounter Details Date Type Department Care Team (Late st Contact Info) Description 04/25/1999 Abstract [facility] [place] [address] , Alexandru Foote MD Social History Tobacco Use Types Packs/Day Years [...]
--- OUTSIDE RECORDS SUMMARY | 2024-03-11 06:56 | XMS_ITS | Encounter Summary ---
Author Organization [facility] Address [address] [place] [address]. [place], [place] [address] [place] [address] Care Team Providers Care Radiator Tester Name Role Phone Unavailable Primary Care Provider Unavailabl e Encounter Details Date Type Department Care Team (Late st Contact Info) Description 07/10/1999 Abstract DANDY CONVERSION [address] [place], [place] [id number] , Generic Conversion, Social History Tobacco Use [...]
== END 2024-03-04 13:03 | disposition home or self-care (01) ==
PROVIDERS: Emergency Provider Nurse Practitioner Family; PCP Nurse Practitioner Family
DX: J40 Bronchitis, not specified as acute or chronic (principal); F41.8 Other specified anxiety disorders; I10 Essential (primary) hypertension; F17.210 Nicotine dependence, cigarettes, uncomplicated
CPT/HCPCS: 71046; 99213; G0463

== ENCOUNTER 2024-09-14 10:17 | Emergency (ER) | payer OTHER, SELFPAY ==
[2024-09-14 10:22] VITALS: BP 165/96; PULSE 76; RESP 16; TEMP 36.6; O2SAT 97
--- OUTSIDE RECORDS SUMMARY | 2024-09-14 10:24 | XMS_ITS | Clinical Summary ---
Author Organization [facility] Address [address] [place] [address] Phone Care Team Providers Care English As A Second Language Instructor Name Role Phone Alicia Larios MD Primary Care Provider [phone] Nasim Braden MD Unavailable [phone] Vanda Aponte APRN, RIPENING ROOM OPERATOR Unavailable Allergies No known active allergies Medications [...] 65 09/22/2015 12:56 PM CDT Temperature 36.2 C (97.2 F) 09/22/2015 12:56 PM CDT Respiratory Rate 16 09/22/2015 12:56 PM CDT [...] (Adult) (1 - 1-dose 75+ series) 2041 Meningococcal Immunization (ACWY) Aged Out No longer [...] Most Recently Relevant to Health Maintenance Insurance MEDICAID [employer] Care Teams English As A Second Language Instructor Relationship Specialty Start Date End Date Alicia Larios MD [address] [place] [address] PCP - General Family Medicine 01/10/15 Nasim Braden MD [address] [address] General Surgery 02/10/15 Vanda Aponte APRN, RIPENING ROOM OPERATOR [address] [address] Nurse Practitioner Advanced Practice Nurse 09/22/15
--- OUTSIDE RECORDS SUMMARY | 2024-09-14 10:24 | XMS_ITS | Clinical Summary ---
Author Organization [facility] Address [address] [place] [address] Care Team Providers Care Air Intelligence Specialist Name Role Phone Tc Villalobos MD Primary [...] of 3 - 19+ 3-dose series) 1985 Pneumococcal Vaccine: 50+ Ye ars (1 of 1 - PCV) 2016 Zoster Vaccines (1 of 2) 2016 COVID-19 Vaccine (2023-2 5 season) 2023 Meningococcal B Vaccine Aged Out No l onger eligible based on patient's age to complete this topic Meningococcal Vaccine Aged Out No kasia adriana eligible based on patient's age to complete this topic RSV Immunizations Under 20 Months Aged Out No longer eligible based on patient's age to complete this topic Insurance [place] Care Teams Air Intelligence Specialist Relationship Specialty Start Date End Date Tc Villalobos MD PCP - General FAMILY MEDICINE SPORTS MEDICINE 06/15/20
--- OUTSIDE RECORDS SUMMARY | 2024-09-14 10:24 | XMS_ITS | Clinical Summary ---
Author Organization [facility] Address [address] [place] [address] Care Team Providers Care Casting Repairer Name Role Phone Dioni Sinha MD Primary Care Provider [phone] Source Comments [facility],non-owned Affiliates and Associated Physician Practices is amultiple site organization consisting of ambulatory clinics and hospital sitesin [place], [place], [place] and [place]. This disclosure is being madepursuant to the Care Everywhere program and may not contain all information available regarding this patient. Last updated 17.[facility] Medications * Be aware that medications may not be up to date on this document. Alwaysverify current medications with the patient. No known [...] at Not on file Legal Sex Male 4:34 PM CDT Gender Identity Not on file Sexual Orientation Not on file Last Filed Vital Signs Vital Sign Reading Time Taken Comments Blood Pressure 151/84 10/08/2017 1:36 PM CDT Pulse 85 10/08/2017 1:36 PM CDT Temperature 37 C (98.6 F) 10/08/2017 1:36 PM CDT Respiratory Rate 18 10/08/2017 1:36 PM CDT Oxygen Saturation 97% 10/08/2017 1:36 PM CDT Inhaled Oxygen Concentration - - Weight 96.9 kg (213 lb 9.6 oz) 10/08/2017 1:36 P M CDT Height 180.3 cm (5' 11) 10/08/2017 1:36 PM CDT Body Mass Index [...] COLON CA SCREENING 1966 LIPID TESTING 1966 HIV SCREENING 1981 HEPATITIS C SCREENING 04/18/1984 DTAP/TDAP/TD VACCINES (1 - Tdap) 1985 HEPATITIS B VACCINE (1 of 3 - 19+ 3-dose series) 1985 PNEUMOCOCCAL VACCINE 50+ (1 of 1 - PCV) 2016 ZOSTER VACCINE (1 of 2) 2016 SCREENING FOR DIABETES 10/08/2017 COVID-19 VACCINE ( - 2023-2 5 season) 2023 DEPRESSION SCREENING 03/04/2024 INFLUENZA VACCINE (#1) 2024 HIB VACCINE Aged Out No longer eligi ble based on patient's age to complete this topic HPV VACCINE Aged Out No longer eligi ble based on patient's age to complete this topic MENINGOCOCCAL (Group B) VACC INE SHARED DECISION-MAKING Aged Out No longer eligibl e based on patient's age to complete this topic MENINGOCOCCAL GROUPS A/C/Y/W VACCINE Aged Out No longer eligible b ased on patient's age to complete this topic Insurance [facility] Care Teams Casting Repairer Relationship Specialty Start Date End Date Dioni Sinha MD [address] [place] [address] PCP - General Internal Medicine 09/05/17
--- NOTE | 2024-09-14 10:41 | ED_ITS ---
HPI - Eye Problem General Chief complaint: Eye Problems Stated complaint: left eye problem, red Time Seen by Provider: 09/14/24 10:25 History of Present Illness HPI Narrative: A few days ago patient had viral symptoms with the slight cough, congestion, sore throat, that has cleared at but he has noticed irritation sensation to his left eye with redness and crusting. Yesterday he was able to clean his eye up and get all the crusting out and it felt fine, but this morning woke up with more crusting so came into the hospital. Does not have any pain anymore, occasionally feels slightly irritated, no vision changes or blurry vision. Related Data Allergies Allergy/AdvReac Type Severity Reaction Status Date / Time No Known Allergies Allergy Verified 09/14/24 10:27 Review of Systems Review of Systems: All systems reviewed & are unremarkable except as noted in HPI and below PMFSH Past Medical History Medical History Acute bronchitis Right shoulder pain Cervicalgia BMI 31.0-31.9,adult Right foot pain Swelling of left side of face Right hand pain Trigger finger Left hand pain Umbilical hernia Screening for diabetes mellitus BMI 30.0-30.9,adult Acute exacerbation of chronic low back pain Scab Bloating Screening for cardiovascular condition Elevated glucose level Abnormal CT scan of lung Elevated WBC count Chronic low back pain X-ray of the lumbar spine on 03/20/2021 reveals previous anterior and posterior fusion at L5-S1 with hardware intact. Mild degenerative disc disease at L3-L4 and mild facet arthritis throughout. Lymphadenopathy Right serous otitis media Otitis media, left Abdominal spasms Rib pain on right side Rib pain on left side Upper respiratory infection Pharyngitis, acute Emphysema lung Polyp of colon (08/29/20) 2 polyps on colonoscopy with Dr. Ceron on 08/29/2020 with recheck in 5 years Family history of colon cancer Depression Anxiety Fatty liver Chronic knee pain Hypertension Barretts esophagus 3 cm area of Lew's on EGD on 08/29/[address] Ceron. Recheck in 3 years Encounter to establish care Tobacco abuse CT lung cancer screen 11/12/2023, negative. Moderate emphysema. Shortness of breath Chronic back pain Surgical History Surgical History Hx of cholecystectomy H/O bilateral inguinal hernia repair H/O spinal fusion Family History Family History Sibling Carcinoma of colon Family history of heart disease in male family member before age 55 Diabetes mellitus Hypertension Depression Mother Family history of Hodgkin's lymphoma, Onset Age: 52 Patient's mother is , Onset Age: 52 Hypertension Diabetes mellitus Father Family history of heart disease in male family member before age 55, Onset Age: 82 Heart disease Other Family history of allergic disorder Social History Social History Smoking packs per day: 0.5 Smoking cigarettes per day: 10.0 Years smoked: 30 Smoking pack-years: 15.00 Smoking status: Current every day smoker Tobacco type: cigarettes Second hand tobacco smoke exposure: Yes Alcohol intake: former Substance use: never Substance use type: does not use Do You Feel Safe in your Home?: Yes Lack of Transportation: No Lack of Food: Never True Current Housing: I Have Housing Concerned About Future Housing: No Difficulty Paying Gas/Electric Bills: No Difficulty Paying for Meds: No Currently Unemployed: No Education: High School Diploma/GED Difficulty w/ Childcare or Family Care: No Living arrangements: with family Spiritual care concerns: No Exam Narrative: EXAMINATION OF ORGAN SYSTEMS/BODY AREAS: Constitutional: Vital signs per nursing GENERAL:[No acute distress, non-toxic appearing.] HEAD: Normal with no signs of head trauma. EYES: EOMI, left eye injected conjunctiva, no fluorescein uptake, no eyelid swelling, visual acuity intact, soft globe ENT: Hearing grossly intact, normal TMs without rashes in ear canal LUNGS: Nonlabored breathing. HEART: [Regular rate and rhythm] ABD: [Soft], [nontender to palpation] EXT: Normal range of motion SKIN: [No rashes or lesions to face.] NEURO: [Alert and oriented x 3. No gross focal sensory or strength deficits.] PSYCH: Normal affect Course Vital Signs Vital signs: Vital Signs Temperature 98 F 09/14/24 10:22 Pulse Rate 76 09/14/24 10:22 Respiratory Rate 16 09/14/24 10:22 Blood Pressure 165/96 H 09/14/24 10:22 Pulse Oximetry 97 09/14/24 10:22 Oxygen Delivery Room Air 09/14/24 10:22 Temperature 98 F 07/14/25 10:22 Pulse Rate 76 09/14/24 10:22 Respiratory Rate 16 09/14/24 10:22 Blood Pressure 165/96 H 09/14/24 10:22 Pulse Oximetry 97 09/14/24 10:22 Oxygen Delivery Room Air 09/14/24 10:22 MDM - Eye Problem MDM Narrative Medical decision making narrative: Patient presents with red left eye with crusting, ongoing for last few days. Recent viral symptoms. I suspect most likely conjunctivitis, thankfully no fluorescein uptake, no signs of rash or other concerns for herpes or shingles. I will start him on antibiotic drops, him follow-up with ophthalmology in the next 1-2 days with strict return precautions. Patient agreeable with plan. Discharge Plan Discharge Clinical Impression: Conjunctivitis Patient Disposition: Home Condition: Stable Instructions: Antibiotic Form, Conjunctivitis (ED) Additional Instructions: Please eyedrops as prescribed, and follow up with the resident program specialist in the next 1-2 days. If you start having any new pain, changes to vision, or anything else concerning, especially with swelling of your eye or pain with movement, come back to the ER immediately. Patient Language: Amharic Prescriptions: New polymyxin B sulf-trimethoprim 10,000 unit- 1 mg/mL drops 1 drp LEFT EYE QID 5 Days Qty: 10 0RF No Action albuterol sulfate 90 mcg/actuation HFA aerosol inhaler 2 puff inhalation Q4-6H PRN (Reason: shortness of breath or wheezing) 30 Days Qty: 8.5 0RF naproxen 500 mg tablet 500 mg PO BID PRN (Reason: pain) Qty: 60 11RF omeprazole 20 mg capsule,delayed release(DR/EC) 20 mg PO DAILY Qty: 30 5RF cyclobenzaprine 10 mg tablet 10 mg PO BID PRN (Reason: muscle spasm) Qty: 60 5RF gabapentin 100 mg capsule 100 mg PO BID Qty: 60 5RF Anoro Ellipta 62.5-25 mcg/actuation blister with device 1 inh inhalation DAILY Qty: 60 5RF Follow-up/Referrals: [facility] [Outside] - 1 Day Israel Palmer MD [Primary Care Provider] -
[2024-09-14 10:52] VITALS: BP 165/96; PULSE 72; RESP 16; O2SAT 94
--- OUTSIDE RECORDS SUMMARY | 2024-09-14 10:54 | XMS_ITS | Clinical Summary ---
Author Organization [facility] Address [address] [place] [address] Care Team Providers Care Rubber Stamp Assembler Name Role Phone Dioni Sinha MD Primary Care Provider [phone] Source Comments [facility],non-owned Affiliates and Associated Physician Practices is amultiple site organization consisting of ambulatory clinics and hospital sitesin [place], [place], [place] and [place]. This disclosure is being madepursuant to the Care Everywhere program and may not contain all information available regarding this patient. Last updated 17.[facility] Medications * Be aware that medications may [...] patient's age to complete this topic Insurance [facility] Care Teams Rubber Stamp Assembler Relationship Specialty Start Date End Date Dioni Sinha MD [address] [place] [id number] PCP - General Internal Medicine 09/05/17
--- OUTSIDE RECORDS SUMMARY | 2024-09-14 10:54 | XMS_ITS | Clinical Summary ---
Author Organization [facility] Address [address] [place] [address] Phone Care Team Providers Care Insurance Examiner Name Role Phone Alicia Larios MD Primary Care Provider [phone] Nasim Braden MD Unavailable [phone] Vanda Aponte APRN, COMPUTER PATTERNMAKER Unavailable Allergies No known active allergies Medications [...] Insurance MEDICAID [employer] Care Teams Insurance Examiner Relationship Specialty Start Date End Date Alicia Larios MD [address] [place] [address] PCP - General Family Medicine 01/10/15 Nasim Braden MD [address] [address] General Surgery 02/10/15 Vanda Aponte APRN, COMPUTER PATTERNMAKER [address] [address] Nurse Practitioner Advanced Practice Nurse 09/22/15
[2024-09-14] MEDS: POLYMYXIN/TRIMETHOPRIM OPHTH 10 ML DROPS 1 DROP LEFT EYE (11:15)
== END 2024-09-14 11:18 | disposition home or self-care (01) ==
LOC: ANHED 10:49
PROVIDERS: Emergency Provider Emergency Medicine; PCP Family Medicine
DX: H10.9 Unspecified conjunctivitis (principal); F41.8 Other specified anxiety disorders; I10 Essential (primary) hypertension; F17.210 Nicotine dependence, cigarettes, uncomplicated
CPT/HCPCS: 99283; A9270

== ENCOUNTER 2024-10-06 12:22 | Outpatient (CLI) | payer OTHER, SELFPAY ==
--- NOTE | ~2024-10-06 | CT_ITS ---
Clinical Indication: Hemoptysis CT Scan of the Chest with Contrast: Technique: Contiguous sections were acquired throughout the chest after intravenous administration of 100 cc of Omnipaque 350. Dose reduction technique was used on this scan by utilizing automated expos ure control and iterative reconstruction technique. The dose-length product (DLP) was 594.32 mGy-cm. COMPARISON: 11/12/2023, 10/27/2021 Findings: Multiple shotty and mildly enlarged mediastinal/hilar lymph nodes are present. Largest node in the delacruz bcarinal region measures 16 mm in short axis. Right hilar node measures 3.0 x 2.0 cm.. There is no fi lling defect in the pulmonary arterial tree to suggest pulmonary embolus. There is no evidence of aor tic dissection or aneurysm. There is no evidence of pleural or pericardial effusion. The lungs are clear. No pulmonary nodules or infiltrates are noted. Moderate emphysema present. Images through the upper abdomen reveal no abnormalities. Impression: No evidence of pulmonary embolus, aortic dissection, or aortic aneurysm. Mediastinal and right hilar lymphadenopathy, probably similar to prior exams. Moderate emphysema. Reviewed, dictated and finalized at [facility]. Impression: No evidence of pulmonary embolus, aortic dissection, or aortic aneurysm. Mediastinal and right hilar lymphadenopathy, probably similar to prior exams. Moderate emphysema.
--- OUTSIDE RECORDS SUMMARY | 2024-10-06 12:28 | XMS_ITS | Clinical Summary ---
Author Organization [facility] Address [address] [place] [address] Phone Care Team Providers Care Financial Sales Advisor Name Role Phone Alicia Larios MD Primary Care Provider [phone] Nasim Braden MD Unavailable [phone] Vanda Aponte APRN, PEDIATRIC INTENSIVE PHYSICIAN Unavailable Allergies No known active allergies Medications [...] Virus (HCV) Screening 1966 TdaP Immunization 1966 Hepatitis B Immunization (1 of 3 - 19+ 3-dose series) 1985 Cologuard 2011 Immunochemical Fecal Occult Blood 2011 Pneumococcal Immunization (5 0+ years) (1 of 1 - PCV) 2016 Zoster Immunization (1 of 2) 2016 SARS-COV-2 Immunization (1 - 2023- season) 2023 Influenza Immunization (#1) 2024 Colonoscopy 07/13/2025 07/14/2015 Colorectal Cancer Screening 07/13/2025 Respiratory Syncytial Virus (RSV) Immunization (Adult) (1 - 1-dose 75+ series) 2041 Human Papillomavirus (HPV) Immunization Aged Out No longer eligible b ased on patient's age to complete this topic Meningococcal Immunization (ACWY) Aged Out No longer [...] Insurance MEDICAID [employer] Care Teams Financial Sales Advisor Relationship Specialty Start Date End Date Alicia Larios MD [address] [place] [address] PCP - General Family Medicine 01/10/15 Nasim [facility]aden [facility] [address] [facility] [address] General Surgery 02/10/15 Vanda Aponte APRN, PEDIATRIC INTENSIVE PHYSICIAN [address] [address] Nurse Practitioner Advanced Practice Nurse 09/22/15
--- OUTSIDE RECORDS SUMMARY | 2024-10-06 12:28 | XMS_ITS | Clinical Summary ---
Author Organization [facility] Address [address] [place] [id number] Care Team Providers Care Strickler Attendant Name Role Phone Tc Villalobos MD Primary [...] complete this topic Insurance [place] Care Teams Strickler Attendant Relationship Specialty Start Date End Date Tc Villalobos MD PCP - General FAMILY MEDICINE SPORTS MEDICINE 06/15/20
--- OUTSIDE RECORDS SUMMARY | 2024-10-06 12:28 | XMS_ITS | Clinical Summary ---
Author Organization [facility] Address [address] [place] [address] Care Team Providers Care Dental Billing Specialist Name Role Phone Dioni Sinha MD Primary Care Provider [phone] Source Comments [facility],non-owned Affiliates and Associated Physician Practices is amultiple site organization consisting of ambulatory clinics and hospital sitesin [place], [place], [place] and [place]. This disclosure is being madepursuant to the Care Everywhere program and may not contain all information available regarding this patient. Last updated 17.[facility] Medications * Be aware that medications may [...] patient's age to complete this topic Insurance [facility] Care Teams Dental Billing Specialist Relationship Specialty Start Date End Date Dioni Sinha MD [address] [place] [address] PCP - General Internal Medicine 09/05/17
[2024-10-06 12:53] LABS: Estimated Glomerular Filt Rate > 60
== END 2024-10-06 12:23 | disposition home or self-care (01) ==
PROVIDERS: PCP Family Medicine; Visit Provider Nurse Practitioner Family
DX: R04.2 Hemoptysis (principal); J43.9 Emphysema, unspecified
CPT/HCPCS: 71275; Q9967